=== PATIENT | female | born 1980 | race African-American/Black ===

== ENCOUNTER 2020-11-05 08:11 | Emergency (ER) | payer OTHER, SELFPAY ==
[2020-11-05 08:29] VITALS: BP 120/74; PULSE 88; RESP 16; TEMP 36.4; O2SAT 100
--- NOTE | 2020-11-05 08:42 | ED.DENTAL ---
HPI - Dental/Oral General Chief complaint: Dental/Oral Stated complaint: Tooth Pain Time Seen by Provider: 11/05/20 08:30 Source: patient and RN notes reviewed Mode of arrival: ambulatory Limitations: no limitations History of Present Illness HPI Narrative: Patient presents today complaining of a possible dental abscess that she noted to the right upper tooth this morning with pain that she currently rates 8/10. Denies fever, shortness of breath, swallowing. Reports that she feels that her face is swollen, but does not see that it is swollen. She does have a dentist and states that this affected tooth has been infected before and needs to be pulled. She has taken Tylenol prior to arrival without relief. MD Complaint: tooth pain Related Data Home Medications Medication Instructions Recorded Confirmed atorvastatin 1 mg PO DAILY 11/05/20 11/05/20 blood sugar diagnostic [OneTouch 11/05/20 11/05/20 Verio test strips] insulin glargine [Lantus Solostar 20 unit SUBCUT HS 11/05/20 11/05/20 U-100 Insulin] lisinopril 1 mg PO DAILY 11/05/20 11/05/20 metformin 1 mg PO DAILY 11/05/20 11/05/20 pen needle, diabetic [BD 11/05/20 11/05/20 Ultra-Fine Short Pen Needle] Allergies Allergy/AdvReac Type Severity Reaction Status Date / Time codeine Allergy Severe FACIAL Verified 11/05/20 08:24 SWELLING Review of Systems Review of Systems: Narrative: CONSTITUTIONAL: Denies body aches, fever, chills, or sweats. EYES: Denies visual changes, redness, or discharge. ENT: Denies rhinorrhea, congestion, sore throat, or otalgia.+ Tooth pain CARDIOVASCULAR: Denies chest pain, palpitations, or edema. RESPIRATORY: Denies cough or dyspnea. GASTROINTESTINAL: Denies abdominal pain, nausea, vomiting, or diarrhea. GENITOURINARY: Denies dysuria or hematuria. SKIN: Denies rash, itching, or wounds. MUSCULOSKELETAL: Denies back pain, joint pain, or myalgia. NEUROLOGIC: Denies headache, numbness, tingling, or weakness. PSYCH: Denies depression or anxiety. [facility] Past Medical History Medical History (Updated 11/05/20 @ 08:45 by Shasha Santos, INSURANCE UNDERWRITING ASSISTANT, BC) Diabetes Social History Social History Gender identity (if verbalized by the patient): Female Comments At time of signature, I have reviewed and agree with nursing past medical, surgical, social and family history unless otherwise noted. Please see nursing chart for further information. There is no relevant family history pertinent to the presenting complaint Exam Narrative: Exam Narrative: GENERAL: Well-appearing, well-nourished, and in no acute distress. HEAD: Normocephalic, atraumatic. EYES: EOMI. No redness or drainage. Conjunctivae normal. ENT: Mucous membranes pink and moist. Throat normal. Uvula midline. Dental decay throughout. Periapical abscess adjacent to tooth #2 with surrounding erythema and mild edema of the gumline of the inner surface of the gumline. No facial swelling noted. NECK: Normal AROM. Supple. No lymphadenopathy. CHEST: No respiratory distress. Clear to auscultation. HEART: Regular rate and rhythm. No murmur appreciated. Normal peripheral pulses. EXTREMITIES: Normal range of motion. No edema. SKIN: Warm, dry, no rash. Capillary refill normal. Normal skin turgor. NEURO: No focal deficits. Alert and oriented x3. Gait steady. PSYCH: Normal affect. No signs of depression or anxiety. Course Vital Signs Vital signs: Vital Signs Temperature 97.5 F L 11/05/20 08:29 Pulse Rate 88 11/05/20 08:29 Respiratory Rate 16 11/05/20 08:29 Blood Pressure 120/74 11/05/20 08:29 Pulse Oximetry 100 11/05/20 08:29 Temperature 97.5 F L 11/05/20 08:29 Pulse Rate 88 11/05/20 08:29 Respiratory Rate 16 11/05/20 08:29 Blood Pressure 120/74 11/05/20 08:29 Pulse Oximetry 100 11/05/20 08:29 Reviewed MDM - Dental/Oral Differential Diagnosis Differential diagnosis: Likely gingival abscess, dental caries, toothache, dental abscess an
== END 2020-11-05 08:50 | disposition home or self-care (01) ==
PROVIDERS: Emergency Provider Nurse Practitioner
DX: K04.7 Periapical abscess without sinus (principal); E11.9 Type 2 diabetes mellitus without complications
CPT/HCPCS: 99213; G0463

== ENCOUNTER 2021-01-17 21:35 | Inpatient (IN) | payer OTHER, SELFPAY ==
[2021-01-17] VITALS (14 sets, daily range): BP systolic 122–148; BP diastolic 74–92; PULSE 62–83; RESP 11–19; TEMP 36.8; O2SAT 99–100
--- NOTE | ~2021-01-17 | CT_ITS ---
EXAMINATION: CT brain w con DATE: 01/17/2021 23:46 INDICATION: Frontal headache TECHNIQUE: Computed tomography (CT) of the head was performed with 100 cc Omnipaque 350 intravenous c ontrast. The mA was adjusted according to patient size. Iterative reconstruction technique was employ ed. Exam dose: 605.33 mGy-cm total exam DLP. COMPARISON: 01/17/[address] brain FINDINGS: There is asymmetric prominence and intraluminal filling defect of the right transverse sinu s, with minimal surrounding contrast material, suggesting nonocclusive thrombus within the sinus. No intracranial mass lesion or hemorrhage or cerebrovascular accident, midline shift or mass effect e ffect or subdural or epidural hematoma is evident. IMPRESSION: Nonocclusive thrombus within the right transverse sinus Reviewed, dictated and finalized at [facility]. Reviewed, dictated and finalized at [facility].
--- NOTE | ~2021-01-17 | CT_ITS ---
EXAMINATION: CT brain wo con DATE: 01/17/2021 22:15 INDICATION: Headache TECHNIQUE: Computed tomography (CT) of the head was performed without intravenous contrast. The mA wa s adjusted according to patient size. Iterative reconstruction technique was employed. Exam dose: 60 5.33 mGy-cm total exam DLP. COMPARISON: None FINDINGS: Asymmetric prominent hyperdense right transverse sinus raises concern for possible venous t hrombosis within this structure. Differential diagnosis includes subdural hematoma. Otherwise no intracranial mass lesion or hemorrhage, cerebrovascular accident or midline shift or mas s effect. No subdural or epidural hematoma is noted otherwise. Included mastoid air cells and paranasal sinuses are normally developed and aerated. No fracture or bone destruction of the cranial vault. IMPRESSION: Asymmetric prominence and hyperdensity in the region of the right transverse sinus sugge sting possible thrombosis; differential diagnosis includes subdural hematoma Reviewed, dictated and finalized at [facility]. Reviewed, dictated and finalized at [facility]. IMPRESSION: Asymmetric prominence and hyperdensity in the region of the right transverse sinus suggesting possible thrombosis; differential diagnosis include s subdural hematoma
--- NOTE | 2021-01-17 21:57 | ED.GENADULT ---
HPI - General Adult General Chief complaint: Recheck/Abnormal Lab/Rx <Teofilo Shen DO - Last Filed: 01/18/21 23:01> Stated complaint: elevated bp <Teofilo Shen DO - Last Filed: 01/18/21 23:01> Time Seen by Provider: 01/17/21 21:48 <Teofilo Shen DO - Last Filed: 01/18/21 23:01> Source: RN notes reviewed <Teofilo Shen DO - Last Filed: 01/18/21 23:01> History of Present Illness HPI narrative: Patient presents to emergency department from home for high blood pressure. Patient states that she has been having intermittent headache for the past 3 days over the frontal head. She states that she has noted with this her blood pressure is elevated today with a blood pressure of 162/100. She states that she had seen her PCP earlier today and was noted have a blood pressure approximately 152/100 at that time she states her blood sugars have been running normal she denies any vision changes, numbness or tingling in the extremities chest pain, shortness of breath abdominal pain nausea vomiting or any other symptoms. She states she took Tylenol earlier this evening approximately 8:00 she had states she did take her lisinopril at her normal time of noon today <Teofilo Shen DO - Last Filed: 01/18/21 23:01> Related Data Home medications: Home Medications Medication Instructions Recorded Confirmed atorvastatin 10 mg PO DAILY 11/05/20 01/18/21 blood sugar diagnostic [OneTouch 11/05/20 11/05/20 Verio test strips] insulin glargine [Lantus Solostar 20 unit SUBCUT HS 11/05/20 01/18/21 U-100 Insulin] metformin 500 mg PO DAILY 11/05/20 01/18/21 pen needle, diabetic [BD 11/05/20 11/05/20 Ultra-Fine Short Pen Needle] lisinopril 10 mg PO DAILY 01/18/21 01/18/21 <DO Chetna Castro Last Filed: 01/18/21 23:01> Allergies/adverse reactions: Allergies Allergy/AdvReac Type Severity Reaction Status Date / Time codeine Allergy Severe FACIAL Verified 11/05/20 08:24 SWELLING <Teofilo Shen DO - Last Filed: 01/18/21 23:01> Review of Systems Review of Systems: Narrative: Gen.: Denies fevers or chills Eyes: Denies eye pain or visual change ENT: Denies congestion Respiratory: Denies shortness of breath or cough CV: Denies chest pain or palpitations GI: Denies abdominal pain nausea, emesis or diarrhea Musculoskeletal: Denies back pain or muscle pain Neuro: Denies numbness, tingling, weakness or focal weakness, reports headache Skin: Denies rash Except as documented, all other systems reviewed and negative <Teofilo Shen DO - Last Filed: 01/18/21 23:01> [facility] Past Medical History Medical History: Medical History (Updated 01/18/21 @ 02:21 by Teofilo Shen DO) Diabetes Hypertension <Teofilo Shen DO - Last Filed: 01/18/21 23:01> Social History Social History: Social History (Updated 01/17/21 @ 21:59 by Teofilo Shen DO) Smoking status: Never smoker Gender identity (if verbalized by the patient): Female <Teofilo Shen DO - Last Filed: 01/18/21 23:01> Exam Narrative: Exam Narrative: APPEARANCE: No acute distress, nontoxic, resting in bed HEENT: Normocephalic, atraumatic, OMM, EYES: PERRL, EOMI NECK: Supple, nontender, full range of motion without pain, no meningismus RESPIRATORY: No respiratory distress, clear to auscultation bilaterally with no rhonchi wheezing or rales CARDIOVASCULAR: RRR s murmur ABDOMINAL: Soft, nontender, nondistended MUSCULOSKELETAL: Moves all extremities. No clubbing, cyanosis or edema. NEURO: A and O ?3, following commands, speech normal, no facial droop,muscle strength 5 out of 5 bilateral upper and lower extremities SKIN:: Warm, dry. Normal Color PSYCHIATRIC: Normal affect/mood <Teofilo Shen DO - Last Filed: 01/18/21 23:01> Course Course Emergency Course: Discussed with patient venous thrombosis denies any history of blood clots denies any tobacco use or contro
--- NOTE | 2021-01-17 22:06 | PC.NURSE ---
Patient taken to CT.
[2021-01-17] MEDS: diphenhydrAMINE HCl INJ 50 MG/ML VIAL 25 MG IV PUSH (22:28)
[2021-01-17] MEDS: SODIUM CHLORIDE 0.9% IV 1,000 ML 999 ML IV CONT (22:28)
[2021-01-17] MEDS: KETOROLAC 30 MG/ML VIAL (*BKC) IV PUSH (22:28)
[2021-01-17 22:58] LABS: Basophils Percent Auto 0.3 % (0.2-1.2); Eosinophils Absolute Auto 0.2 K/mm3 (0-0.3); Eosinophils Percent Auto 2.5 % (0-4.4); Hematocrit 33.6 % (37.0-47.0); Immature Granulocyte Absolute 0.02 K/mm3 (0.00-0.031); Immature Granulocyte Percent A 0.3 % (0-0.5); Lymphocytes Absolute Auto 2.87 K/mm3 (0.9-3.2); Lymphocytes Percent Auto 44.3 % (18.3-44.2); Mean Corpuscular HGB Conc 32.7 g/dl (32-36); Mean Corpuscular Hemoglobin 27.9 pg (26-34); Mean Corpuscular Volume 85.3 fl (80-100); Mean Platelet Volume 10.7 fl (7.4-10.4); Monocytes Absolute Auto 0.9 K/mm3 (0.1-0.6); Monocytes Percent Auto 13.7 % (2.6-8.5); Neutrophils Absolute Auto 2.5 K/mm3 (1.3-6.7); Neutrophils Percent Auto 38.9 % (45.5-73.1); Platelet Count Result 226 k/mm3 (150-375); Red Blood Count 3.94 M/mm3 (4.2-5.4); Red Cell Distribution Width 13.1 % (11.5-14.5); White Blood Count 6.5 K/mm3 (4.5-10.0)
[2021-01-17 23:02] LABS: Add Urine Microscopic? YES; Appearance Urine Clear (Clear); Bilirubin Urine Negative (Negative); Blood Urine Negative (Negative); Color Urine Yellow (Yellow); Glucose Urine UA Negative (Negative); Ketones Urine Negative (Negative); Leukocyte Esterase Ur Negative LEU/UL (Negative); Mucus Urine Moderate /lpf; Nitrate Urine Negative (Negative); Protein Urine 2+ mg/dL (Negative); RBC Urine 0-2 /hpf (0-2); Specific Grav Ur 1.029 (1.001-1.035); Squamous Epithelial Cell Urine Few /hpf (Few); WBC Urine 0-3 /hpf
[2021-01-17 23:03] LABS: Alanine Aminotransferase 38 U/L (4-35); Albumin Level 3.4 g/dL (3.5-5.1); Alkaline Phosphatase 69 U/L (38-126); Anion Gap 3 mmol/L (8-16); Aspartate Amino Transferase 29 U/L (14-36); Bilirubin,Total 0.1 mg/dL (0.2-1.3); Blood Urea Nitrogen 12 mg/dL (7-17); Calcium 8.9 mg/dL (8.4-10.2); Carbon Dioxide 31 mmol/L (22-30); Chloride 104 mmol/L (98-107); Estimated CRCL calculation 94 ml/min; Estimated Glomerular Filt Rate > 60; Glucose 123 mg/dL (65-105); Potassium 3.5 mmol/L (3.4-5.0); Sodium 138 mmol/L (137-145)
[2021-01-18] VITALS (97 sets, daily range): BP systolic 109–158; BP diastolic 64–97; PULSE 58–104; RESP 0–24; TEMP 36.3–37.1; O2SAT 97–100
--- NOTE | 2021-01-18 00:15 | PC.NURSE ---
Contacted lab to add on coags.
[2021-01-18 00:44] LABS: Prothrombin Time 13.5 Seconds (11.1-14.7)
[2021-01-18 00:45] LABS: Partial Thromboplastin Time 25.8 SECONDS (22.3-36.8)
[2021-01-18] MEDS: HEPARIN SODIUM 5,000 UNITS/ML VIAL 8000 UNITS IV PUSH (02:21)
[2021-01-18] MEDS: HEPARIN SOD/D5W 100 UNITS/ML 25,000 UNITS/250 ML BAG 15 UNITS IV CONT (02:47)
--- NOTE | 2021-01-18 03:41 | PC.NURSE ---
[id number] Shellie from [facility] access line calls to get triage info on patient. She states she will call back when bed is available.
--- NOTE | 2021-01-18 07:15 | PC.NURSE ---
Pt asleep easily arousable, non-labored respirations, receiving heparin drip. Normotensive. Awaiting bed placement from [facility]
--- NOTE | 2021-01-18 07:45 | PC.NURSE ---
Pt ambulated steady gait to BR, denies CP/SOB, non-labored respirations
--- NOTE | 2021-01-18 08:40 | PC.NURSE ---
Repeat PT/PTT drawn and sent to lab
[2021-01-18 09:11] LABS: Prothrombin Time 14.2 Seconds (11.1-14.7)
[2021-01-18 09:33] LABS: Partial Thromboplastin Time > 200.0 SECONDS (22.3-36.8)
--- NOTE | 2021-01-18 11:55 | PC.NURSE ---
Off going RN reports heparin shut off at 0930 for one hour then decreased by 2ml/hr at 1030 per protocol. Repeat labs ordered for six hours after initial adjustment and are due at 1530. ED Charge aware.
--- NOTE | 2021-01-18 12:00 | PC.NURSE ---
Patient provided with toiletries and was up to the bathroom at this time. Provided with clean linen on bed. Meal tray ordered and patient aware of upcoming blood glucose check.
--- NOTE | 2021-01-18 12:14 | PC.NURSE ---
called [facility] for bed update, still waiting bed assignment [id number]
[2021-01-18 12:16] LABS: Glucose Point of Care 72 (65-105)
--- NOTE | 2021-01-18 12:18 | PC.NURSE ---
Addendum entered by Dimirti Richardson RN 01/18/21 13:16: EDP was made aware of this at time of note. Original Note: Patient reports that she takes metformin 500mg PO at lunchtime. Patient glucose noted to be 72. Metformin withheld at this time.
--- NOTE | 2021-01-18 15:45 | PC.NURSE ---
[facility] access line contacted. [facility] does not have bed assignment yet and prob wont today.
--- NOTE | 2021-01-18 15:50 | PC.NURSE ---
called [facility] for bed update 1550, no beds available, waiting discharges.
--- NOTE | 2021-01-18 16:24 | PC.NURSE ---
Meals ordered for dinner today as well as breakfast and lunch for tomorrow.
[2021-01-18 16:48] LABS: INR 1.2; Prothrombin Time 15.4 Seconds (11.1-14.7)
[2021-01-18 16:51] LABS: Partial Thromboplastin Time 124.8 SECONDS (22.3-36.8)
--- NOTE | 2021-01-18 17:20 | PC.NURSE ---
next 6 hour PT/PTT ordered for 2200.
--- NOTE | 2021-01-18 20:31 | PC.NURSE ---
Called [facility] requesting a placement update. They still have no available bed at this time
--- NOTE | 2021-01-18 20:34 | PC.NURSE ---
[place] [facility] US called [facility], told will be a wait for a room because pt. was not covid swabbed. Our ED MD not made aware of this last night.
[2021-01-18 22:15] LABS: Partial Thromboplastin Time 112.3 SECONDS (22.3-36.8)
[2021-01-18 22:21] LABS: INR 1.1
[2021-01-18] MEDS: HEPARIN SOD/D5W 100 UNITS/ML 25,000 UNITS/250 ML BAG 9 UNITS IV CONT (22:43)
--- NOTE | 2021-01-18 23:01 | PC.NURSE ---
heparin infusion rate decreased per protocol. Timed lab redraws ordered for 0500 per protocol. pt resting in bed c eyes open. c/o headache 05/29. MD notified. No s/s of distress. speech clear. a/o x 4 with ability to move all 4 extremities without difficulty.
[2021-01-18] MEDS: ACETAMINOPHEN 500 MG TABLET 1000 MG PO (23:15)
[2021-01-19] VITALS (26 sets, daily range): BP systolic 109–158; BP diastolic 66–103; PULSE 55–104; RESP 12–19; TEMP 36.3; O2SAT 98–100; BMI 32.5
[2021-01-19 03:37] LABS: Glucose Point of Care 100 (65-105)
[2021-01-19 05:05] LABS: INR 1.1; Prothrombin Time 14.7 Seconds (11.1-14.7)
[2021-01-19 05:07] LABS: Partial Thromboplastin Time 86.1 SECONDS (22.3-36.8)
[2021-01-19] MEDS: HEPARIN SOD/D5W 100 UNITS/ML 25,000 UNITS/250 ML BAG 9 UNITS IV CONT ×2 (05:31→23:16)
[2021-01-19 06:53] LABS: Basophils Percent Auto 0.7 % (0.2-1.2); Eosinophils Absolute Auto 0.2 K/mm3 (0-0.3); Hematocrit 35.7 % (37.0-47.0); Hemoglobin 11.4 g/dL (12.0-15.0); Immature Granulocyte Absolute 0.01 K/mm3 (0.00-0.031); Immature Granulocyte Percent A 0.2 % (0-0.5); Lymphocytes Absolute Auto 2.54 K/mm3 (0.9-3.2); Lymphocytes Percent Auto 44.3 % (18.3-44.2); Mean Corpuscular HGB Conc 31.9 g/dl (32-36); Mean Corpuscular Hemoglobin 27.9 pg (26-34); Mean Corpuscular Volume 87.3 fl (80-100); Mean Platelet Volume 10.3 fl (7.4-10.4); Monocytes Absolute Auto 0.9 K/mm3 (0.1-0.6); Neutrophils Absolute Auto 2.1 K/mm3 (1.3-6.7); Neutrophils Percent Auto 36.8 % (45.5-73.1); Platelet Count Result 237 k/mm3 (150-375); Red Blood Count 4.09 M/mm3 (4.2-5.4); Red Cell Distribution Width 13.3 % (11.5-14.5); White Blood Count 5.7 K/mm3 (4.5-10.0)
[2021-01-19 07:03] LABS: Anion Gap 1 mmol/L (8-16); Blood Urea Nitrogen 10 mg/dL (7-17); Calcium 8.9 mg/dL (8.4-10.2); Carbon Dioxide 32 mmol/L (22-30); Chloride 106 mmol/L (98-107); Estimated CRCL calculation 85 ml/min; Estimated Glomerular Filt Rate > 60; Glucose 96 mg/dL (65-105); Potassium 4.2 mmol/L (3.4-5.0); Sodium 139 mmol/L (137-145)
[2021-01-19] MEDS: ACETAMINOPHEN 500 MG TABLET 1000 MG PO (07:43)
[2021-01-19 11:14] LABS: Prothrombin Time 13.8 Seconds (11.1-14.7)
[2021-01-19 11:16] LABS: Partial Thromboplastin Time 66.3 SECONDS (22.3-36.8)
[2021-01-19] MEDS: HEPARIN SODIUM 5,000 UNITS/ML VIAL 3500 UNITS IV PUSH (11:29)
--- NOTE | 2021-01-19 13:40 | PC.NURSE ---
Cecilia from [facility] health line called to update pt bed status. Cecilia states that right now no beds are available. At the earliest it would be this evening for a bed to become available. Informed charge nurse Amanda of this
--- NOTE | 2021-01-19 16:54 | PC.NURSE ---
No dose change needed for pt
[2021-01-19 17:09] LABS: INR 1.1; Prothrombin Time 14.5 Seconds (11.1-14.7)
[2021-01-19 17:10] LABS: Partial Thromboplastin Time 91.8 SECONDS (22.3-36.8)
--- NOTE | 2021-01-19 17:59 | PC.NURSE ---
This patient, Letty Sheets, was admitted to Medical Room 348-01. Patient/family oriented to hospital policies and general routines including ID bracelet, bed and alarms, visiting hours, pain management, procedures, bathroom and other care routines, personal items, smoking policy, room service/diet, and visiting hours. Information on how to activate the Rapid Response Team has been discussed. Patient/Family are encouraged to report perceived risks to care and to ask questions if they do not understand what they are told or what they should do.
--- NOTE | 2021-01-19 18:11 | PC.NURSE ---
Pt received from ED. When pt arrived to room heparin was running at 9mls/hr when in the mar and what was told to me in report, pt was to be running at 11mls/hr. Chaz Lane, charge aide, notified of this difference. PTT is therapeutic and mar was changed to what pt was running at. Sindy Gil 2nd RN verified these differences and the change to the mar. Notifying hospitalist of this as well.
--- NOTE | 2021-01-19 18:14 | PC.NURSE ---
Upon taking pt up to room admitting RN noticed that pts pump was running at 9 units of Heparin instead of 11 like it had been adjusted to earlier today. This RN asked Dr. Weller and he states to ask admitting if it should be raised to 11 or kept at 9. Will inform charge nurse Amanda of this.
--- NOTE | 2021-01-19 18:27 | PHAR ---
01/19/21 1825 VERIFIED HEPARIN RATE AT 900 UNITS/HR. NOT A RATE CHANGE BUT AN ENTRY REFLECTIVE OF THE CURRENT RATE. PATIENT IS THERAPEUTIC AT THIS RATE.
[2021-01-19] MEDS: ACETAMINOPHEN 325 MG TABLET 650 MG PO (18:46)
--- NOTE | 2021-01-19 19:00 | PM.TDS ---
Transfer Discharge Sum: Prov Provider Date of admission: 01/19/21 19:00 Primary care physician: UNKNOWN,DOCTOR Admitting clinician: Leland Arriaga MD DS: Admitting Diagnosis Admitting Diagnosis Admitting Diagnosis: 1. Thrombosis of the transverse sinus. 2. Insulin-dependent type 2 diabetes mellitus. 3. Hypertension. 4. Hyperlipidemia. 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) use of insulin Status: Acute (3) Hypertension: Code(s): I10 - Essential (primary) hypertension Status: Acute (4) Hyperlipidemia: Code(s): E78.5 - Hyperlipidemia, unspecified Status: Acute Transfer Discharge Sum: Med Medications Active and Home Medications: Home Medications atorvastatin 10 mg PO DAILY 11/05/20 [History Confirmed 01/18/21] blood sugar diagnostic [Team K[employer] Mixed Martial artsTouch Verio test strips] 11/05/20 [History Confirmed 01/19/21] insulin glargine [Lantus Solostar U-100 Insulin] 20 unit SUBCUT HS 11/05/20 [History Confirmed 01/18/21] metformin 500 mg PO DAILY 11/05/20 [History Confirmed 01/18/21] pen needle, diabetic [BD Ultra-Fine Short Pen Needle] 11/05/20 [History Confirmed 01/19/21] lisinopril 10 mg PO DAILY 01/18/21 [History Confirmed 01/18/21] Transfer Discharge Sum: Hosp Hospital Course Hospital course: This is a 40-year-old female with insulin-dependent type 2 diabetes mellitus, hypertension, and hyperlipidemia who presented to the emergency department in the evening of 01/17/2021 with reports of a headache and elevated blood pressure. Several days prior to presentation she developed a right frontal headache that has been persistent since the onset. After an appointment with her primary care provider she was started on lisinopril 10 milligrams daily and she assumed her headaches were secondary to elevated blood pressures. Unfortunately her headaches continued despite the addition of lisinopril and she was only having mild relief with acetaminophen and thus she came in for evaluation. A noncontrast brain CT demonstrated a nonocclusive thrombus within the right transverse sinus and transfer was initiated to [place] for evaluation by Neurology. There was mention that this could possibly have been a subdural hematoma but that is felt to be less likely. She was started on a heparin drip and she has remained in a hospital bed in the ER for well over 36 hours awaiting transfer. She did well with the heparin drip and there was no change in neurologic status to suggest an intracranial bleed. Due to the fact that she was in the emergency department for greater than 24 hours awaiting transfer I was asked to admit the patient to the floor so she may be monitored more closely. At the time my evaluation the patient continued to have a mild ache in the right frontal region and she also complained of being tired, getting little rest while in the emergency department. Aside from the headache she had no real complaints. She was afebrile throughout her stay with stable vital signs. Blood pressures did occasionally get up to the 140s to 150s systolic but were well controlled most of the time. CBC showed a mild normocytic anemia with normal white blood cell count. Initial coags were within normal limits. She was started on a heparin drip for the thrombus and her PTT was monitored closely. BMP and LFTs were essentially unremarkable. 2+ protein was noted in the urine. A bed became available within several hours of the patient being admitted to the [facility] in stable condition. Time Spent with Patient Time attestation: Total time spent providing and/or coordinating transfer services: 50 minutes. Total time spent: Greater than 30 minutes [place]
[2021-01-19 19:15] LABS: SARS-CoV-2 RNA PCR Negative
--- NOTE | 2021-01-19 19:16 | PC.NURSE ---
Hanh HOWARD notified of heparin being at 9mls/hr when it should have been at 11mls/hr when brought from the ER.
--- NOTE | 2021-01-19 19:16 | PM.SD2 ---
Same Day Admit/Disch: HPI History of Present Illness Chief complaint: Headache, elevated blood pressure. Narrative: This is a 40-year-old female with insulin-dependent type 2 diabetes mellitus, hypertension, and hyperlipidemia who presented to the emergency department in the evening of 01/17/2021 with reports of a headache and elevated blood pressure. Several days prior to presentation she developed a right frontal headache that has been persistent since the onset. After an appointment with her primary care provider she was started on lisinopril 10 milligrams daily and she assumed her headaches were secondary to elevated blood pressures. Unfortunately her headaches continued despite the addition of lisinopril and she was only having mild relief with acetaminophen and thus she came in for evaluation. A noncontrast brain CT demonstrated a nonocclusive thrombus within the right transverse sinus and transfer was initiated to [place] for evaluation by Neurology. She was started on a heparin drip and she has remained in a hospital bed in the ER for well over 36 hours awaiting transfer. I was asked in this setting to admit the patient to the floor until a bed opens up. At the time my evaluation the patient continues to have a mild ache in the right frontal region and she also complains of being tired, getting little rest while in the emergency department. Aside from the headache she has no real complaints but does mention multiple issues with her teeth and in fact it sounds like she is to have a full mouth extraction in the near future. She does not currently have any active abscesses to her knowledge and has no significant mouth pain. She is not on oral contraceptives and has not received the COVID vaccination. No personal or family history of venous thromboembolism. No vertigo, syncope, near syncope, auditory or visual changes, focal weakness, or paresthesias. [facility] Past Medical History Medical History (Updated 01/19/21 @ 19:22 by Hanh Wood PA-C) Hyperlipidemia Hypertension Insulin dependent type 2 diabetes mellitus Surgical History Surgical History (Updated 01/19/21 @ 19:19 by Hanh Wood PA-C) History of tubal ligation Family History Family History Mother Diabetes mellitus Sibling Diabetes mellitus Father Lung cancer Social History Social History (Updated 01/19/21 @ 20:44 by Hanh G. Gerling, PA-C) Social History: Surrogate decision maker: Steve Sheets, . Code status: Full code. Smoking status: Never smoker Alcohol intake: former Substance use: never Additional living arrangements comments: Resides in [place] with her and 2 of their children. 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 Same Day Admit/Disch: Med Pre-admit Medications Home Medications Medication Instructions Recorded Confirmed Type atorvastatin 10 mg PO DAILY 11/05/20 01/18/21 History blood sugar diagnostic [OneTouch 11/05/20 01/19/21 History Verio test strips] insulin glargine [Lantus Solostar 20 unit SUBCUT HS 11/05/20 01/18/21 History U-100 Insulin] metformin 500 mg PO DAILY 11/05/20 01/18/21 History pen needle, diabetic [BD 11/05/20 01/19/21 History Ultra-Fine Short Pen Needle] lisinopril 10 mg PO DAILY 01/18/21 01/18/21 History Exam Narrative: Exam Narrative: General: Well-developed female in the semi-Gomes position in bed in no distress. Weight: 103.1 kilograms. BMI: 32.6. HEENT: Normocephalic, atraumatic. PERRL, EOMI. Sclerae anicteric. Nares are patent bilaterally. She is somewhat tender to palpation in the right supraorbital region. No tenderness over the maxillary sinuses. She has multiple missing teeth and cracked teeth with dental caries. Oral mucosa moist. Oropharynx clear. Neck: Supple. No lymphadenopathy. Respiratory: Lungs are clear to a
[2021-01-19 23:05] LABS: Partial Thromboplastin Time 71.7 SECONDS (22.3-36.8)
[2021-01-20] VITALS: PULSE 69
== END 2021-01-20 02:15 | disposition short-term general hospital (02) | DRG 58 ==
LOC: ANHED 01-19 16:45 → ANH3MED 01-19 16:50
PROVIDERS: Emergency Medicine; Admitting Provider Internal Medicine; Emergency Provider Emergency Medicine; Visit Provider Internal Medicine
DX: G08 Intracranial and intraspinal phlebitis and thrombophlebitis (principal); Z20.822 Contact with and (suspected) exposure to COVID-19; E11.9 Type 2 diabetes mellitus without complications; I10 Essential (primary) hypertension; E78.5 Hyperlipidemia, unspecified; Z79.4 Long term (current) use of insulin
CPT/HCPCS: 36415; 70450; 70460; 80048; 80053; 81001; 81025; 82948; 85025; 85610; 85730; 99285; A9270; C9803; G0379; J1200; J1644; J1885; J7030; Q9967; U0003; U0005

== ENCOUNTER 2022-09-17 09:14 | Outpatient (CLI) | payer OTHER, SELFPAY ==
--- NOTE | ~2022-09-17 | MM_ITS ---
EXAMINATION: MM screening brenda BI w kiah HISTORY: Screening mammogram TECHNIQUE: Craniocaudal and mediolateral oblique 3-D tomosynthesis images were obtained and synthetic 2-D images were generated. CAD analysis was submitted and interpreted. COMPARISON: No prior mammogram is available for comparison at this institution. BREAST PARENCHYMAL COMPOSITION: The breasts are almost entirely fatty. FINDINGS: There is no evidence of suspicious mass, calcification, or architectural distortion to sugg est malignancy in either breast. There has been no suspicious interval change. IMPRESSION: 1. No mammographic evidence of malignancy. 2. Recommend routine screening mammography in one year. BI-RADS Category 1: Negative Reviewed, dictated and finalized at [facility]. [facility] SERVICEMAN
== END 2022-09-17 09:15 | disposition home or self-care (01) ==
LOC: ANHIMG 09:16
PROVIDERS: Visit Provider Nurse Practitioner Obstetrics & Gynecology
DX: Z12.31 Encounter for screening mammogram for malignant neoplasm of breast (principal)
CPT/HCPCS: 77063; 77067

== ENCOUNTER 2023-01-09 06:11 | Emergency (ER) | payer OTHER, SELFPAY ==
[2023-01-09] VITALS (21 sets, daily range): BP systolic 132–159; BP diastolic 68–96; PULSE 72–95; RESP 13–95; TEMP 36.8; O2SAT 93–100
--- NOTE | ~2023-01-09 | CT_ITS ---
EXAMINATION: CT abdomen pelvis w con INDICATION: Lower abdominal pain TECHNIQUE: Computed tomographic images of the abdomen and pelvis were obtained after the administrati on of 100 cc of Omnipaque 350 intravenous contrast. The dose-length product (DLP) was 1084.99 mGy-cm. Automated exposure control and iterative reconstruction technique were employed. COMPARISON: None available FINDINGS: Minimal dependent atelectasis is present in the lung bases. The heart size is normal. There is a small right pleural effusion. The liver, spleen, pancreas, gallbladder, and adrenal glands are normal. The kidneys are unremarkable. There is a moderate volume of free fluid in the pelvis. There i s also a moderate volume of subcutaneous gas in the lower anterior abdominal wall, left greater than right. Inflammatory change in the infraumbilical midline abdominal fat is consistent with recent surg soledad. There is a Orozco catheter in the urinary bladder. There is marked wall thickening of the urinary bladder. A small focus of gas in the urinary bladder is likely due to the Orozco catheter. No patholo gically enlarged abdominal or pelvic lymph nodes are identified. No free intraperitoneal gas or evide nce of bowel obstruction. IMPRESSION: 1. Diffuse wall thickening of the urinary bladder which could reflect cystitis. 2. Small volume of pelvic ascites of unclear etiology. 3. Subcutaneous gas of the anterior abdominal wall and infiltration of the midline lower abdominal fa t, consistent with recent surgery. Reviewed, dictated and finalized at location A. IMPRESSION: 1. Diffuse wall thickening of the urinary bladder which could reflect cystitis. 2. Small volume of pelvic ascites of unclear etiology. 3. Subcutaneous gas of the anterior abdominal wall and infiltration of the midl ine lower abdominal fat, consistent with recent surgery.
[2023-01-09] MEDS: ONDANSETRON INJ 4 MG/2 ML VIAL IV PUSH (06:30)
[2023-01-09 06:32] LABS: Basophils Percent Auto 0.3 % (0.2-1.2); Eosinophils Percent Auto 0.2 % (0-4.4); Hematocrit 32.1 % (37.0-47.0); Hemoglobin 10.6 g/dL (12.0-15.0); Immature Granulocyte Absolute 0.05 K/mm3 (0.00-0.031); Immature Granulocyte Percent A 0.6 % (0-0.5); Lymphocytes Absolute Auto 0.86 K/mm3 (0.9-3.2); Lymphocytes Percent Auto 9.5 % (18.3-44.2); Mean Corpuscular Hemoglobin 27.9 pg (26-34); Mean Corpuscular Volume 84.5 fl (80-100); Monocytes Absolute Auto 0.6 K/mm3 (0.1-0.6); Monocytes Percent Auto 6.7 % (2.6-8.5); Neutrophils Absolute Auto 7.5 K/mm3 (1.3-6.7); Neutrophils Percent Auto 82.7 % (45.5-73.1); Platelet Count Result 482 k/mm3 (150-375); Red Cell Distribution Width 13.7 % (11.5-14.5)
[2023-01-09 06:42] LABS: Alanine Aminotransferase 23 U/L (6-35); Alkaline Phosphatase 105 U/L (38-126); Anion Gap 10 mmol/L (8-16); Aspartate Amino Transferase 28 U/L (14-36); Bilirubin,Total 0.6 mg/dL (0.2-1.3); Blood Urea Nitrogen 9 mg/dL (7-17); Carbon Dioxide 26 mmol/L (22-30); Chloride 95 mmol/L (98-107); Estimated CRCL calculation 115 ml/min; Estimated Glomerular Filt Rate > 60; Glucose 189 mg/dL (65-110); Lipase 150 U/L (23-300); Potassium 3.7 mmol/L (3.4-5.0); Sodium 131 mmol/L (137-145)
[2023-01-09 06:47] LABS: Appearance Urine Turbid (Clear); Bacteria Urine 4+ /hpf; Bilirubin Urine 1+ (Negative); Blood Urine 3+ (Negative); Color Urine Dark Yellow (Yellow); Glucose Urine UA Negative (Negative); Ketones Urine 1+ mg/dL (Negative); Leukocyte Esterase Ur 2+ LEU/UL (Negative); Mucus Urine Present /lpf; Need Manual Microscopic Need Manual; Nitrate Urine Positive (Negative); Protein Urine 3+ mg/dL (Negative); RBC Urine >100 /hpf (0-2); Specific Grav Ur 1.022 (1.001-1.035); Squamous Epithelial Cell Urine Occasional /hpf (Few); WBC Urine >100 /hpf
[2023-01-09 07:01] LABS: Non Pathogenic Casts Not Present; WBC Clumps Urine Present /hpf
[2023-01-09 07:02] LABS: Add Urine Microscopic? YES
[2023-01-09] MEDS: SODIUM CHLORIDE 0.9% IV 1,000 ML 999 ML IV CONT ×2 (07:52→11:06)
[2023-01-09] MEDS: MORPHINE SULFATE (*CRX) 4 MG/ML INJ IV PUSH (07:52)
--- NOTE | 2023-01-09 08:08 | ED.ABDPAIN ---
HPI - Abdominal Pain General Chief Complaint: Abdominal Pain Stated Complaint: ABD PAIN Time Seen by Provider: 01/09/23 07:00 History of Present Illness HPI narrative: Patient is a 42-year-old female who presents ER with lower abdominal pain. Worsening over the last 2 days. Sharp and radiates into her back. Patient underwent hysterectomy on 12/28/2022 at [facility] due to fibroids with menorrhagia. She has an indwelling Orozco catheter in place since then and she is unsure why. She reports subjective fevers and chills. She has follow-up with her surgeons tomorrow. Symptoms are worsened by physical movement. Denies alleviating factors. Related Data Home Medications Medication Instructions Recorded Confirmed atorvastatin 10 mg tablet 10 mg PO DAILY 11/05/20 01/18/21 blood sugar diagnostic (OneTouch 11/05/20 01/19/21 Verio test strips) insulin glargine 100 unit/mL (3 20 unit subcut HS 11/05/20 01/18/21 mL) subcutaneous pen (Lantus Solostar U-100 Insulin) metformin 500 mg tablet 500 mg PO DAILY 11/05/20 01/18/21 pen needle, diabetic 31 gauge x 11/05/20 01/19/21 5/16 (BD Ultra-Fine Short Pen Needle) lisinopril 10 mg tablet 10 mg PO DAILY 01/18/21 01/18/21 Allergies Allergy/AdvReac Type Severity Reaction Status Date / Time codeine Allergy Severe FACIAL Verified 01/09/23 07:13 SWELLING Review of Systems Review of Systems: All systems reviewed & are unremarkable except as noted in HPI and below Constitutional: Constitutional: Reports chills, Reports fatigue and Reports fever(s) ENT: Denies nasal congestion and Denies sore throat Cardiovascular: Cardiovascular: Denies chest pain, Denies radiating jaw, neck or arm pain and Denies slow heart rate Respiratory: Respiratory: Denies cough and Denies dyspnea Gastrointestinal: Gastrointestinal: Reports abdominal pain, Denies diarrhea, Denies nausea and Denies vomiting Genitourinary: Genitourinary: Denies dysuria and Denies flank pain [facility] Past Medical History Medical History (Updated 01/09/23 @ 12:20 by Jeremías Kitchen MD) Hyperlipidemia Hypertension Insulin dependent type 2 diabetes mellitus Surgical History Surgical History (Updated 01/19/21 @ 19:19 by Hanh Wood PA-C) History of tubal ligation Family History Family History Mother Diabetes mellitus Sibling Diabetes mellitus Father Lung cancer Social History Social History (Updated 01/19/21 @ 20:44 by Hanh Wood PA-C) Social History: Surrogate decision maker: Steve Sheets, . Code status: Full code. Smoking status: Never smoker Alcohol intake: former Substance use: never Additional living arrangements comments: Resides in [place] with her and 2 of their children. 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 Exam Narrative: GENERAL: Well-appearing, well-nourished, and in no acute distress. HEAD: Normocephalic, atraumatic. EYES: PERRL and EOMI. ENT: Mucous membranes moist. CHEST: Clear to auscultation. No respiratory distress. HEART: Regular rate and rhythm. Normal peripheral pulses. ABDOMEN: Soft, diffusely tender to palpation but worse in the lower abdomen over the midline abdominal scar where there is induration, nondistended. No evidence of cellulitis/wound dehiscence/wound infection. EXTREMITIES: Normal range of motion. No edema. SKIN: Warm, dry, no rash. NEURO: Alert and oriented x3. PSYCH: Normal mood and affect. Course Course Emergency Course: 1005: I discussed case with Dr. Lawson note has been sent [facility]'. Patient underwent radical hysterectomy and I placed a Orozco for prophylaxis. We would like him backfilled with Orozco with 300 cc of fluid and patient will urinate 30 minutes later. If patient has over 150 mL voided patient to be discharged without Orozco patient is then appropriate to
--- NOTE | 2023-01-09 11:28 | PC.NURSE ---
Orozco Catheter Removed per doctor's request. Pt able to void after removal with no complaints. 200mL of urine collected since catheter removal.
[2023-01-09] MEDS: oxyCODONE/ACETAMINOPHEN (*CRX) 5-325 MG TABLET 1 TABLET PO (12:34)
== END 2023-01-09 13:05 | disposition home or self-care (01) ==
PROVIDERS: Emergency Medicine; Emergency Provider Emergency Medicine
DX: N30.90 Cystitis, unspecified without hematuria (principal); E78.5 Hyperlipidemia, unspecified; I10 Essential (primary) hypertension; E11.9 Type 2 diabetes mellitus without complications
CPT/HCPCS: 36415; 74177; 80053; 81001; 83690; 85025; 87077; 87086; 87088; 87186; 96361; 96365; 96367; 96375; 99284; A9270; J0131; J0696; J2270; J2405; J7030; Q9967

== ENCOUNTER 2024-07-12 09:24 | Outpatient (CLI) | payer OTHER, SELFPAY ==
--- NOTE | ~2024-07-12 | MM_ITS ---
EXAMINATION: MM screening brenda BI w kiah HISTORY: Screening TECHNIQUE: Craniocaudal and mediolateral oblique 3-D tomosynthesis images were obtained and synthetic 2-D images were generated. CAD analysis was submitted and interpreted. COMPARISON: 09/17/2022 BREAST PARENCHYMAL COMPOSITION: Not dense: There are scattered areas of fibroglandular density. FINDINGS: There is no evidence of suspicious mass, calcification, or architectural distortion to sugg est malignancy in either breast. There has been no suspicious interval change. IMPRESSION: 1. No mammographic evidence of malignancy. 2. Recommend routine screening mammography in one year. BI-RADS Category 1: Negative Reviewed, dictated and finalized at location B.
== END 2024-07-12 09:25 | disposition home or self-care (01) ==
LOC: ANHIMG 09:25
PROVIDERS: Visit Provider Nurse Practitioner Obstetrics & Gynecology
DX: Z12.31 Encounter for screening mammogram for malignant neoplasm of breast (principal)
CPT/HCPCS: 77063; 77067

== ENCOUNTER 2024-08-30 13:08 | Outpatient (CLI) | payer OTHER, SELFPAY ==
--- OUTSIDE RECORDS SUMMARY | 2024-08-30 13:16 | XMS_ITS | Data Portability ---
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 She is being treated for abnormal bleeding. She has a normal pelvic ultrasound essentially. She will continue to use her current treatment and follow-up with Alie. We discussed HPV, cervical dysplasia, cervical cancer. We discussed HPV transmission, natural history, and dormancy. We discussed cervical dysplasia screening, diagnosis, treatment. She was given precautions about follow-up. She was warned of the potential cervical cancer as an outcome in this situation. We discussed LEEP procedure. We discussed the procedure in detail. I showed her video. We discussed the risks, benefits, and alternatives. We spent 25 minutes [id number]. We will proceed with the procedure. [email or web address] Not available 09/08/2022 19:24:07 Plan of Treatment Reminders Order Date Submit Date Provider Last Modified By Organization Details Last Modified Time Details Appointments None recorded. Lab test, urine 2021 022 [email or web address] [facility], [address], [place], [address], 10:43:34 test, urine 2022 023 [email or web address] [facility], [address], [place], [address], 12:56:53 Referral None recorded. Procedures None recorded. Surgeries loop electrode excision procedure, surgical (LEEP) (SURG) 2021 023 [email or web address] Chad Wei MD, [address], [place], [address], 16:25:58 Imaging US, pelvis 2021 022 [email or web address] [facility], [address], [place], [address], 20:26:24 US, transvagina l 2021 022 [email or web address] [facility], [address], [place], [address], 20:26:24 Medication Orders Slynd 4 mg (28) tablet 2021 022 [address] [id number] [address], [place], [id number], 10:56:47 Patient TargetsNo targets recorded. Patient InstructionsNo instructions recorded. Reason for Referral None Reported. 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 FINAL DIAGN OSIS: Epith elial Cell Abnor malit y, Squam ous Cell: Atypi jese squam ous cells , canno t exclu de high grade squam ous intra epith elial lesio n (ASC- H). Elect micki paris jaylin d by Ashley Ventura MD on 2021 at 2:51 PM ----- ----- ----- ----- ----- ----- ----- ----- ----- ----- ----- ----- ----- ----- ----- ----- ----- ---- HPV RESUL TS: HPV mRNA E6/E7 : Posit baylee - HPV mRNA Detec cassie HPV GENOT YPE 16 (LILIANA) : Not Detec cassie HPV GENOT YPE 18/45 (LILIANA) : Not Detec cassie NOTE: This high risk HPV mRNA assay detec ts fourt een high- risk HPV types (16, 18, 31, 33, 35, 39, 45, 51, 52, 56, 58, 59, 66, 68) witho ut diffe renti ation . This assay can diffe renti ate HPV 16 from HPV 18/45 , but does not diffe renti ate betwe en HPV 18 and HPV 45. A negat baylee HPV 16, 18/45 genot ype assay resul t does not exclu de the possi bilit y of cytol ogic abnor malit ies or of futur e or under lying MEAGHAN 1, MEAGHAN 3 or cance r. COMME NT: Note: This speci men was revie wed by a Cytot echno logis t and/o r Patho logis t (as indic ated in this repor t) after evalu ation using the Thinp rep Imagi ng Syste m. CLINI JESE INFOR MATIO N: Menst rual Statu s: LMP (if appli cable ): Clini jese Histo ry/Pr eviou s Pap: Type of Neopl tenisha (if appli cable ): Signi fican t Clini jese Findi ngs: Other Histo ry: Hormo yulia (if appli cable ): SUGGE STED FOLLO W-UP: Follo w up as warra nted, based on curre nt guide lines and indiv idual patie nt consi derat ions. Not Available [facility] (Lab) [address], [place], [address], 07/21/2022 15:54:56 07/15/20 22 07/15/2022 TRICH OMONA S VAGIN LINA (RRNA ) trichomonas vaginalis ribosomal RNA (rrna) Negati ve negati ve Not Available [facility] (Lab) [address], [place], [address], 07/21/2022 15:54:56 07/15/20 22 07/15/2022 CT/GC (LILIANA) , THINP REP VIAL chlamydia trachomatis, PCR Negati ve negati ve Not Available [facility] (Lab) [address], [place], [address], 07/21/2022 15:54:57 07/15/20 22 07/15/2022 CT/GC (LILIANA) , THINP REP VIAL neisseria gonorrhoeae, PCR Negati ve negati ve Not Available [facility] (Lab) [address], [place], [address], 07/21/2022 15:54:57 08/27/20 22 08/27/2022 SURGI JESE PATHO LOGY surgical pathology SEE RESULT S BELOW CASE REPOR T: Surgi jese Patho logy Repor t Case: [id number] Autho emiliana diez Provi clarisse: Corey Hallman Colle cted: 08/27 1419 ELECTRIC ORGAN INSPECTOR AND REPAIRER Order ing Locat ion: [place] Patho logy Recei amor: 08/28 0302 Patho logis t: Finn Cavazos MD Speci mens: A) - Cervi x, CXBX 3 o'yovani ck B) - Cervi x, CXBX 6 o'yovani ck C) - Endoc ervix , ECC D) - Cervi x, TMZ FINAL DIAGN OSIS: A. Cervi x, 3:00, biops y: -High -grad e squam ous intra epith elial lesio n (MEAGHAN- 2) with super impos ed infla mmati on, see comme nt. B. Cervi x, 6:00, by: -High -grad e squam ous intra epith elial lesio n (MEAGHAN- 2) with super impos ed infla mmati on, see comme nt. C. Endoc ervix , curet tage: -Frag ments of endoc ervic al epith elium , negat baylee for dyspl tenisha. D. Cervi x, TMC, biops y: -High -grad e squam ous intra epith elial lesio n (MEAGHAN- 2) with super impos ed infla mmati on, see comme nt. Aida garcía by Finn Cavazos MD on 08/31 at 1:06 PM ----- ----- ----- ----- ----- ----- ----- ----- ----- ----- ----- ----- ----- ----- ----- ----- ----- ---- COMME NT: Immun ohist ochem ical leobardo sis with p16, perfo rmed to evalu ate the degre e of dyspl tenisha (bloc ks A1, B1, and D1), shows stron g block like react ivity and suppo rts the above diagn oses. CLINI JESE INFOR MATIO N: Human papil lomav irus DNA test posit baylee, high risk on cervi jese speci men. R87.8 10,R8 7.610 MICRO SCOPI C DESCR IPTIO N: A micro scopi c exami natio n was perfo rmed. This test was devel oped and its perfo rmanc e megan cteri stics deter mined by [facility]. It has not been clear ed or appro amor by the U. S. Food and Drug Admin istra tion. The FDA has deter mined that such clear ance or appro porsha is not neces cisco. This test may be used for clini jese purpo se. It shoul d not be regar ded as inves tigat ional or for resea rch. This labor atory is certi fied under the Clini jese Labor atory Impro vemen t Amend ments of 1987 (CLIA ) as quali fied to perfo rm high compl exity clini jese labor atory testi ng. In cases which have decal cifie d tissu es, the resul ts shoul d be inter prete d with cauti on given the possi bilit y of false negat rehan. The posit baylee contr ols demon strat e appro priat e posit baylee stain ing. The known tissu e negat baylee contr ols are negat baylee. The non-i mmune serum contr ol was non-r eacti ve. GROSS DESCR IPTIO N: A. Cervi x. The speci men is label ed with the patie nt's name, demog raphi cs and Cx Bx 3:00 . Recei amor in forma miladis is a 1.0 x 0.6 x 0.2 cm piece of bowie tissu e. It is trise cted and submi tted in casse tte A1. Gross ed by Blessing Rios on B. Cervi x. The speci men is label ed with the patie nt's name, demog raphi cs and Cx Bx 6:00 . Recei amor in forma miladis is a 1.0 x 0.3 x 0.2 cm aggre gate of bowie tissu e and mucus . The entir e speci men is submi tted in one casse tte. Gross ed by Blessing Rios on C. Endoc ervix . The speci men is label ed with the patie nt's name, demog raphi cs and ecc . Recei amor in forma miladis is a 0.5 x 0.3 x 0.[address] gate of minut e red tissu e. The entir e speci men is submi tted in one casse tte. Gross ed by Blessing Rios on D. Cervi x. The speci men is label ed with the patie nt's name, demog raphi cs and tmz . Recei amor in forma miladis is a 2.0 x 0.7 x 0.3 [address] gate of clott ed blood . The entir e speci men is submi tted in one casse tte. Gross ed by Blessing Rios on Not Available [facility] (Lab) [address], [place], [address], 08/31/2022 14:08:59 08/27/20 22 08/27/2022 pregn blanco test, urine HCG negati ve Not Available [place] [address], [place], [address], 08/27/2022 10:10:46 10/04/19 23 10/04/2022 SURGI JESE PATHO LOGY surgical pathology SEE RESULT S BELOW CASE REPOR T: Surgi jese Patho logy Repor t Case: [id number] Autho emiliana diez Provi clarisse: Liane Wei MD Colle cted: 10/04 1435 Order ing Locat ion: [place] Patho logy Recei amor: 10/05 0421 Patho logis t: Aguila Guzman MD Speci men: Cervi x, LEEP FINAL DIAGN OSIS: Cervi x, loop elect rosur gical excis ion proce dure: -Squa mous cell carci noma invad ing to a depth of 4 mm with a linea r exten t of 12 mm exten ding to ectoc ervic al and endoc ervic al alphonse ns. -Back groun d high- grade squam ous intra epith elial lesio n (MEAGHAN- 3) exten ding to ectoc ervic al alphonse n. Elect micki garcía by Aguila Guzman MD on 2022 at 4:31 PM ----- ----- ----- ----- ----- ----- ----- ----- ----- ----- ----- ----- ----- ----- ----- ----- ----- ---- COMME NT: The ectoc ervic al alphonse n demon strat es multi focal invol vemen t by HSIL/ MEAGHAN-3 . Invas baylee squam ous cell carci noma multi focal ly exten ds to the endoc ervic al alphonse n (bloc ks A6-A8 ). The ectoc ervic al alphonse n shows focal invol vemen t by invas baylee squam ous cell carci noma (bloc k A8). CLINI JESE INFOR MATIO N: n87.9 MICRO SCOPI C DESCR IPTIO N: A micro scopi c exami natio n was perfo rmed. This test was devel oped and its perfo rmanc e megan cteri stics deter mined by [facility]. It has not been clear ed or appro amor by the U. S. Food and Drug Admin istra tion. The FDA has deter mined that such clear ance or appro porsha is not neces cisco. This test may be used for clini jese purpo se. It shoul d not be regar ded as inves tigat ional or for resea rch. This labor atory is certi fied under the Clini jese Labor atory Impro vemen t Amend ments of 1987 (CLIA ) as quali fied to perfo rm high compl exity clini jese labor atory testi ng. In cases which have decal cifie d tissu es, the resul ts shoul d be inter prete d with cauti on given the possi bilit y of false negat rehan. The posit baylee contr ols demon strat e appro priat e posit baylee stain ing. The known tissu e negat baylee contr ols are negat baylee. The non-i mmune serum contr ol was non-r eacti ve. GROSS DESCR IPTIO N: A. Cervi x. The speci men is label ed with the patie nt's name, demog alejandro cs and JOCELINP . Recei amor in forma miladis are 4 unori ented piece s of cervi jese tissu e aggre gatin g 4.2 x 4.0 x 1.3 cm. The presu med alphonse ns are inked black and the speci men is seria lly secti on. The entir e speci men is submi tted in casse ttes A1-A 12. Gross ed by Blessing Rios on Not Available [facility] (Lab) [address], [place], [address], 10/05/2022 17:34:39 10/04/19 23 10/04/2022 pregn blanco test, urine HCG negati ve Not Available [facility] [address], [place], [address], 10/04/2022 12:56:41 07/16/20 22 07/16/2022 US, pelvi s No observ ation record ed. [email or web address] [facility] [address], [place], [address], 07/16/2022 13:41:24 07/16/20 22 07/16/2022 US, trans vagin al No observ ation record ed. [email or web address] [facility] [address], [place], [address], 07/16/2022 13:41:12 07/16/20 22 07/16/2022 US, pelvi s No observ ation record ed. [email or web address], [place], [address], 07/23/2022 10:34:03 10/27/19 23 MAMMO , scree hiral, bilat eral No observ ation record ed. MELO Not Available 2022 01:38:45 07/12/20 24 07/12/2024 MAMMO , scree hiral, bilat eral No observ ation record ed. [facility] [address], [place], [address], 07/16/2024 16:43:02 Result Notes None recorded. Procedures Surgical History Date Name Laterality Status Provider Name and Address Organization Details Recorded Time 10/04/19 23 LEEP completed Chad Wei MD [address], [place], [address], [place] [facility] 10/04/2022 17:15:44 10/04/19 23 LEEP completed Cyn Lemus [facility] 10/04/2022 11:01:01 08/27/20 22 Colposcopy completed Alie Hollingsworth [facility]- [address], [place], [address], [place] [facility] 08/27/2022 10:43:16 07/15/20 22 Date of Last Pap Smear completed Mariaelena Momin [facility] 08/27/2022 10:05:31 Imaging Results Imaging Date Name Status LastModified by Organization Details LastModified Time 07/16/2022 US, pelvis completed [email or web address] [facility] [address], [place], [address], 07/16/2022 13:41:24 07/16/2022 US, transvaginal completed [email or web address] [facility] [address], [place], [address], 07/16/2022 13:41:12 07/16/2022 US, pelvis completed [email or web address], [place], [address], 07/23/2022 10:34:03 10/27/2022 MAMMO, screening, bilateral completed [place] Information not available 10/28/2022 01:38:45 07/12/2024 MAMMO, screening, bilateral completed [facility] [address], [place], [address], 07/16/2024 16:43:02 Procedure Notes None recorded. Medical Equipment None Reported. Allergies Allergen ID Allergen Name Allergen Category Reaction Reaction Severity Criticality Documentation Date Start Date Code Code System Note Provider Name and Address Organization Details Recorded Time 08654 codeine medicatio n facial swelling moderate Not available 07/15/2022 2670 RxNorm Luz [facility] 11:46:25 Medications Name Sig Start Date Stop Date Status Note LastModified by Organization Details LastModified Time cyclobenzap rine 10 mg tablet TAKE 1 TABLET BY MOUTH EVERY NIGHT AT BEDTIME 07/15 completed Not Available Not Available Not Available furosemide 40 mg tablet active Not Available Not Available Not Available metformin 500 mg tablet TAKE 1 TABLET BY MOUTH TWICE DAILY active Not Available Not Available No t Available azelastine 0.05 % eye drops PLACE 1 DROP INTO BOTH EYES TWICE DAILY X 1 WEEK active Not Available Not Available No t Available gabapentin 600 mg tablet TAKE 1 TABLET BY MOUTH TWICE DAILY 07/15 completed Not Available Not Available Not Available atorvastati n 10 mg tablet TAKE 1 TABLET BY MOUTH EVERY DAY active Not Available Not Available No t Available alprazolam 1 mg tablet TAKE 1 TABLET BY MOUTH ONCE NEEDED FOR ANXIETY BEFORE MRI 07/15 completed Not Available Not Available Not Available sulfamethox azole 400 mg-trimetho prim 80 mg tablet TAKE 1 TABLET BY MOUTH TWICE DAILY FOR 5 DAYS 07/15 completed Not Available Not Available Not Available prednisone 20 mg tablet 07/15 completed Not Available Not Available Not Available prednisone 5 mg tablet TAKE 1 TABLET BY MOUTH EVERY DAY FOLLOWING TAPER 07/15 completed Not Available Not Available Not Available Lantus U-100 Insulin 100 unit/mL subcutaneou s solution 07/15 completed Not Available Not Available Not Available sulfamethox azole 800 mg-trimetho prim 160 mg tablet TAKE 1 TABLET BY MOUTH TWICE DAILY FOR 5 DAYS active Not Available Not Available No t Available spironolact one 25 mg tablet TAKE 1 TABLET BY MOUTH ONCE DAILY active Not Available Not Available No t Available meloxicam 7.5 mg tablet TAKE 1 TABLET BY MOUTH TWICE DAILY 07/15 completed Not Available Not Available Not Available OneTouch Ultra Test strips USE TO TEST BLOOD SUGAR ONCE DAILY active Not Available Not Available No t Available prednisone 2.5 mg tablet 07/15 completed Not Available Not Available Not Available pantoprazol e 40 mg tablet,daisy yed release 07/15 completed Not Available Not Available Not Available lisinopril 10 mg tablet TAKE 1 TABLET BY MOUTH ONCE DAILY active Not Available Not Available No t Available gabapentin 300 mg capsule TAKE 1 CAPSULE BY MOUTH TWICE DAILY 07/15 completed Not Available Not Available Not Available ergocalcife rol (vitamin D2) 1,250 mcg (50,000 unit) capsule TAKE 1 CAPSULE BY MOUTH ONCE EVERY 15 DAYS active Not Available Not Available No t Available albuterol sulfate HFA 90 mcg/actuati on aerosol inhaler active Not Available Not Available Not Available ondansetron 4 mg disintegrat ing tablet DISSOLVE 1 TABLET ON THE TONGUE EVERY 8 HOURS 07/15 completed Not Available Not Available Not Available neomycin 3.5 mg/g-polymy damien B 10,000 unit/g-dexa meth 0.1 % eye oint APPLY TO LIDS EVERY NIGHT AT BEDTIME FOR 7 DAYS. active Not Available Not Available No t Available Spironolact one W/Hctz 25 mg-25 mg tablet active Not Available Not Available Not Available Lantus U-100 Insulin 100 unit/mL subcutaneou s cartridge 07/15 completed Not Available Not Available Not Available ferrous sulfate 07/15 completed Not Available Not Available Not Available furosemide 07/15 completed Not Available Not Available Not Available Albuterol Sulfate HFA 07/15 completed Not Available Not Available Not Available FeroSul 325 mg (65 mg iron) tablet TAKE 1 TABLET BY MOUTH EVERY DAY active Not Available Not Available No t Available Lantus Solostar U-100 Insulin 100 unit/mL (3 mL) subcutaneou s pen INJECT 20 UNITS SUBCUTANE OUS EVERY NIGHT AT BEDTIME active Not Available Not Available No t Available butalbital- acetaminoph en-caffeine 50 mg-300 mg-40 mg capsule TAKE 1 CAPSULE BY MOUTH TWICE DAILY NEEDED active Not Available Not Available No t Available Eliquis 5 mg tablet 10/27 /2022 completed Not Available Not Available Not Available Eliquis 2.5 mg tablet active Not Available Not Available No t Available TRUEplus Pen Needle 31 gauge x 5/16 USE ONCE DAILY active Not Available Not Available No t Available TRUEplus Pen Needle 31 gauge x 1/4 USE DAILY active Not Available Not Available No t Available OneTouch Ultra2 Meter USE TO TEST BLOOD SUGAR ONCE DAILY active Not Available Not Available No t Available OneTouch Delica Plus Lancet 33 gauge USE TO TEST BLOOD SUGAR ONCE DAILY active Not Available Not Available No t Available Slynd 4 mg (28) tablet Take 1 tablet every day by oral route with meals for 90 days. 2021 active Lot#: [id number], Exp 3 Not Available Not Available Not Available Vitals Date Recorded Body height Body mass index (BMI) Body weight Systolic blood pressure Diastolic blood pressure Provider Name and Address Organization Details Last Updated DateTime 07/24/2022 176.53 cm 33 kg/m2 075895.4 7 g 104 mm[Hg] 69 mm[Hg] Adelaida Ridley [facility] 2 09:46:21 Date Recorded Body height Body mass index (BMI) Body weight Systolic blood pressure Diastolic blood pressure Provider Name and Address Organization Details Last Updated DateTime 08/27/2022 176.53 cm 33 kg/m2 853703.4 7 g 111 mm[Hg] 74 mm[Hg] Mariaelena Momin [facility] 2 10:05:27 Date Recorded Body height Body mass index (BMI) Body weight Systolic blood pressure Diastolic blood pressure Provider Name and Address Organization Details Last Updated DateTime 09/08/2022 176.53 cm 33.8 kg/m2 547920.4 3 g 131 mm[Hg] 86 mm[Hg] [facility] 2 18:49:15 Date Recorded Body height Body mass index (BMI) Body weight Systolic blood pressure Diastolic blood pressure Provider Name and Address Organization Details Last Updated DateTime 10/04/2022 176.53 cm 32.7 kg/m2 865577.2 8 g 100 mm[Hg] 71 mm[Hg] [facility] 11:00:42 Social History Question Answer Notes LastModified by Organizat ion Details LastModified Time Tobacco Smoking Status Never Smoker Nereyda Caldwell [facility], [facility] 10/04/2022 10:45:35 Do You Have An Advance Directive? No Information n ot available 07/15/2022 What Is Your Level Of Alcohol Consumption? None Information not available 07/15/2022 Are You Blind Or Do You Have Difficulty Seeing? No Information n ot available 07/15/2022 What Is Your Level Of Caffeine Consumption? Occasional Information not available 07/15/2022 How Much Tobacco Do You Chew? None Information not available 07/15/2022 In The 14 Days Before Symptom Onset, Have You Had Close Contact With A Laboratory-confirm ed COVID-19 While That Case Was Ill? No Information n ot available 07/15/2022 In The 14 Days Before Symptom Onset, Have You Had Close Contact With A Person Who Is Under Investigation For COVID-19 While That Person Was Ill? No Information not available 07/15/2022 Have You Been To An Area Known To Be High Risk For COVID-19? No Information not available 07/15/2022 Are You Deaf Or Do You Have Serious Difficulty Hearing? No Information not available 07/15/2022 What Type Of Diet Are You Following? DIABETIC Information n ot available 07/15/2022 What Is The Highest Grade Or Level Of School You Have Completed Or The Highest Degree You Have Received? 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 No Information not available 07/15/2022 Do You Use Protection During Sex? Usually Information not available 07/15/2022 Do You Use Your Seat Belt Or Car Seat Routinely? No Information not available 07/15/2022 Do You Have Smoke And Carbon Monoxide Detectors In Your Home? Yes Information not available 07/15/2022 How Much Tobacco Do You Smoke? No Information not available 07/15/2022 Do You Feel Stressed (tense, Restless, Nervous, Or Anxious, Or Unable To Sleep At Night)? [id number] Information not available 07/15/2022 Do You Use Any Illicit Or Recreational Drugs? No Information not available 07/15/2022 Do You Use Sunscreen Routinely? No Information not available 07/15/2022 Have You Used IV Drugs? No Information not available 07/15/2022 Sex: Female Functional Status Question Answer Note LastModified by Organizat ion Details LastModified Time Do you have difficulty walking or climbing stairs? No [email or web address] Information not available 10/04/2022 Are you able to walk? [email or web address] Information not available 07/15/2022 Are you able to care for yourself? Yes [email or web address] Information not available 10/04/2022 Do you have difficulty dressing or bathing? No [email or web address] Information not available 10/04/2022 What is your exercise level? Moderate Information not available 07/15/2022 Mental Status None recorded. Family History Nothing Reported. Medical History Condition Response Diabetes Y Other Y Anemia Y Hematologic disorders Y History of abnormal pap Y Headaches Y Deep Vein Thrombosis Y Lung Disease Y Kidney Disease Y Gynecological History Statement/Question Response Abnormal Pap Y Flow Heavy Date of LMP 07/02/2022 N On BCP's at Conception? N STIs/STDs N Was last menstrual period normal N HPV Vaccine N Duration of Flow (days) 7 Current Control Method Tubal Ligat ion Age at First Child 18 Date of control 07/24/2022 Are cycles usually normal N Sexually Active? Y Other Menses Monthly Y Age of first menstrual cycle 13 Date of Last Pap Smear 07/15/2022 Sexual Problems? Y LMP Definite Desired Control Method Other N Obstetrics History GPAL:G 4 P 0 0 0 4 Type Value Living 4 Total 4 Past Encounters Encounter ID Performer Location Encounter Start Date Encounter Closed Date Diagnosis/Indication Diagnosis SNOMED-CT Code Diagnosis ICD10 Code [id number] [facility] [address] [address] 07/15/2022 11:15:04 07/15/2022 13:53:12 Gynecologic examination [id number] Z01.419 Z11.51 Z11.3 Z11.8 Postcoital bleeding 4888 0000 N93.0 [id number] Nichole Dong [place] [address],[place] [address] 07/16/2022 12:16:35 07/16/2022 13:04:25 Postcoital bleeding [id number] N93.0 [id number] Alie Hollingsworth [facility] [address],[place] [address] 07/24/2022 09:39:32 07/26/2022 11:42:23 Menorrhagia [id number] N92.0 [id number] Alie Hollingsworth [facility] [address],[place] [address] 08/27/2022 09:58:42 08/27/2022 11:53:26 Screening procedure [id number] Z13.9 Human ileana llomavirus deoxyribonucleic acid detected, high risk on cervical specimen [id number] R87.810 R87.610 [id number] Chad Wei MD [place] [address],[place] [address] 09/08/2022 17:54:59 09/09/2022 14:23:21 Dysplasia of cervix [id number] N87.9 [id number] Chad Wei MD [place] [address],[place] [address] 10/04/2022 10:44:34 10/04/2022 17:53:25 Screening procedure [id number] Z13.9 Dysplasia of cervix 7339 1008 N87.9 Health Concerns Section Related Observation LastModified by Organization Detai ls LastModified Time None Recorded Concern Status LastModified by Organization Details LastModified Time None Recorded Advance Directives Directive N: Payers Encounter Date Sequence Insurance Name Policy Number Policy Gonzalez Covered Member ID Gonzalez Member ID Guarantor Name 07/16/2022 1 [facility] ON OR AFTER 03/19/21 (MEDICAID REPLACEMENT - HMO) Letty Sheets [id number] Letty Sheets 07/24/2022 1 [facility] ON OR AFTER 03/19/21 (MEDICAID REPLACEMENT - HMO) Letty Sheets [id number] Letty Sheets 08/27/2022 1 [facility] ON OR AFTER 03/19/21 (MEDICAID REPLACEMENT - HMO) Letty Sheets [id number] Letty Sheets 09/08/2022 1 [facility] ON OR AFTER 03/19/21 (MEDICAID REPLACEMENT - HMO) Letty Sheets [id number] Letty Sheets 10/04/2022 1 [facility] ON OR AFTER 03/19/21 (MEDICAID REPLACEMENT - HMO) Letty Sheets [id number] Letty Sheets Notes Date Note Type Note Provider Name and Address Organization Details Recorded Time 07/24/2022 text/html Here today for US review & discuss options for heavy menses. [facility] [address], [place], [address], [facility] 07/24/2022 11:00:21 08/27/2022 text/html Here today for Colposcopy for abn ASCUS pap with +HR HPV. Alie Hollingsworth [facility] [address], [place], [address], [facility] 08/27/2022 10:45:12 09/08/2022 text/html this patient is a 42-year-old female presents for follow-up on abnormal bleeding and abnormal Pap smear. She is being treated for abnormal bleeding. She has a normal pelvic ultrasound essentially. She will continue to use her current treatment and follow-up with Alie. We discussed HPV, cervical dysplasia, cervical cancer. We discussed HPV transmission, natural history, and dormancy. We discussed cervical dysplasia screening, diagnosis, treatment. She was given precautions about follow-up. She was warned of the potential cervical cancer as an outcome in this situation. We discussed LEEP procedure. We discussed the procedure in detail. I showed her video. We discussed the risks, benefits, and alternatives. We spent 25 minutes [id number]. We will proceed with the procedure. Chad Wei MD [address], [place], [address], [facility] 09/08/2022 19:25:35 10/04/2022 text/html 42-year-old female with cervical dysplasia presents for LEEP procedure. Chad Wei MD [address], [place], [address], [facility] 10/04/2022 17:16:18 OBGyn Episode Ob Episode Information Episode Created Date Number of Fetuses Patient Bloodtype Patient rh Status Prepregnancy Weight lbs Domestic Partner Domestic Partner Phone Father Name Jitterbug Operator Status 07/15/20 22 1 CLOSED Fetus Data First Name Last Name Admitted to NICU Weight (g) Sex Living Outcome Pediatric Complications Fetus ID Race Codes Race Delivery Type M [id number] Vaginal Delivery Osvaldo Calculation OSVALDO Calculation Method Initial Osvaldo Date Initial Exam Date Initial Exam Provider Initial Ultrasound Date Last Menstrual Period Date Ultra Sound Weeks Gestation Conception by IVF Embryo Age at Transfer Date of Transfer 0 Eighteen To Twenty Week Osvaldo Update Ultra Sound Date Fundal Height At Umbil Quickening Date Ultra Sound Latest Weeks Gestation Final Osvaldo Confirmed By Final Osvaldo Confirmed Date Final Osvaldo Date Ultra Sound Latest Days Gestation 0 0 Menstrual History Last Menstrual Date Menses Monthly On Bcp Conception Prior Menses Frequency Hcg Plus Date Menarche Onset Age Delivery Information Delivery Date Delivery Type Labor Anesthesia Weeks Gestation Incision Type Labor Labor Length Hrs Delivered By Post Complications Tubal Sterilization Discharge Date Comments 8 Discharge Information Feeding Method Contraceptive Method Maternal HG B and HCT Levels Ob Episode Information Episode Created Date Number of Fetuses Patient Bloodtype Patient rh Status Prepregnancy Weight lbs Domestic Partner Domestic Partner Phone Father Name Jitterbug Operator Status 07/15/20 22 1 CLOSED Fetus Data First Name Last Name Admitted to NICU Weight (g) Sex Living Outcome Pediatric Complications Fetus ID Race Codes Race Delivery Type F [id number] Vaginal Delivery Osvaldo Calculation OSVALDO Calculation Method Initial Osvaldo Date Initial Exam Date Initial Exam Provider Initial Ultrasound Date Last Menstrual Period Date Ultra Sound Weeks Gestation Conception by IVF Embryo Age at Transfer Date of Transfer 0 Eighteen To Twenty Week Osvaldo Update Ultra Sound Date Fundal Height At Umbil Quickening Date Ultra Sound Latest Weeks Gestation Final Osvaldo Confirmed By Final Osvaldo Confirmed Date Final Osvaldo Date Ultra Sound Latest Days Gestation 0 0 Menstrual History Last Menstrual Date Menses Monthly On Bcp Conception Prior Menses Frequency Hcg Plus Date Menarche Onset Age Delivery Information Delivery Date Delivery Type Labor Anesthesia Weeks Gestation Incision Type Labor Labor Length Hrs Delivered By Post Complications Tubal Sterilization Discharge Date Comments 0 Discharge Information Feeding Method Contraceptive Method Maternal HG B and HCT Levels Ob Episode Information Episode Created Date Number of Fetuses Patient Bloodtype Patient rh Status Prepregnancy Weight lbs Domestic Partner Domestic Partner Phone Father Name Jitterbug Operator Status 07/15/20 22 1 CLOSED Fetus Data First Name Last Name Admitted to NICU Weight (g) Sex Living Outcome Pediatric Complications Fetus ID Race Codes Race Delivery Type M [id number] Vaginal Delivery Osvaldo Calculation OSVALDO Calculation Method Initial Osvaldo Date Initial Exam Date Initial Exam Provider Initial Ultrasound Date Last Menstrual Period Date Ultra Sound Weeks Gestation Conception by IVF Embryo Age at Transfer Date of Transfer 0 Eighteen To Twenty Week Osvaldo Update Ultra Sound Date Fundal Height At Umbil Quickening Date Ultra Sound Latest Weeks Gestation Final Osvaldo Confirmed By Final Osvaldo Confirmed Date Final Osvaldo Date Ultra Sound Latest Days Gestation 0 0 Menstrual History Last Menstrual Date Menses Monthly On Bcp Conception Prior Menses Frequency Hcg Plus Date Menarche Onset Age Delivery Information Delivery Date Delivery Type Labor Anesthesia Weeks Gestation Incision Type Labor Labor Length Hrs Delivered By Post Complications Tubal Sterilization Discharge Date Comments 2 Discharge Information Feeding Method Contraceptive Method Maternal HG B and HCT Levels Ob Episode Information Episode Created Date Number of Fetuses Patient Bloodtype Patient rh Status Prepregnancy Weight lbs Domestic Partner Domestic Partner Phone Father Name Jitterbug Operator Status 07/15/20 22 1 CLOSED Fetus Data First Name Last Name Admitted to NICU Weight (g) Sex Living Outcome Pediatric Complications Fetus ID Race Codes Race Delivery Type F [id number] Vaginal Delivery Osvaldo Calculation OSVALDO Calculation Method Initial Osvaldo Date Initial Exam Date Initial Exam Provider Initial Ultrasound Date Last Menstrual Period Date Ultra Sound Weeks Gestation Conception by IVF Embryo Age at Transfer Date of Transfer 0 Eighteen To Twenty Week Osvaldo Update Ultra Sound Date Fundal Height At Umbil Quickening Date Ultra Sound Latest Weeks Gestation Final Osvaldo Confirmed By Final Osvaldo Confirmed Date Final Osvaldo Date Ultra Sound Latest Days Gestation 0 0 Menstrual History Last Menstrual Date Menses Monthly On Bcp Conception Prior Menses Frequency Hcg Plus Date Menarche Onset Age Delivery Information Delivery Date Delivery Type Labor Anesthesia Weeks Gestation Incision Type Labor Labor Length Hrs Delivered By Post Complications Tubal Sterilization Discharge Date Comments 3 Discharge Information Feeding Method Contraceptive Method Maternal HG B and HCT Levels
[2024-08-30 14:12] LABS: Basophils Percent Auto 0.4 % (0.2-1.2); Eosinophils Absolute Auto 0.1 K/mm3 (0-0.3); Hematocrit 38.3 % (37.0-47.0); Hemoglobin 12.4 g/dL (12.0-15.0); Immature Granulocyte Absolute 0.01 K/mm3 (0.00-0.031); Immature Granulocyte Percent A 0.2 % (0-0.5); Lymphocytes Absolute Auto 1.78 K/mm3 (0.9-3.2); Lymphocytes Percent Auto 39.3 % (18.3-44.2); Mean Corpuscular HGB Conc 32.4 g/dl (32-36); Mean Corpuscular Hemoglobin 28.6 pg (26-34); Mean Corpuscular Volume 88.2 fl (80-100); Mean Platelet Volume 10.6 fl (7.4-10.4); Monocytes Absolute Auto 0.7 K/mm3 (0.1-0.6); Monocytes Percent Auto 14.6 % (2.6-8.5); Neutrophils Percent Auto 43.5 % (45.5-73.1); Platelet Count Result 268 k/mm3 (150-375); Red Blood Count 4.34 M/mm3 (4.2-5.4); Red Cell Distribution Width 13.4 % (11.5-14.5); White Blood Count 4.5 K/mm3 (4.5-10.0)
[2024-08-30 14:15] LABS: Albumin Level 4.4 g/dL (3.5-5.1); Anion Gap 5 mmol/L (4-12); Blood Urea Nitrogen 15 mg/dL (7-17); Calcium 9.4 mg/dL (8.4-10.2); Carbon Dioxide 29 mmol/L (22-30); Chloride 104 mmol/L (98-107); Estimated Glomerular Filt Rate > 60; Glucose 91 mg/dL (65-110); Phosphorus 3.1 mg/dL (2.5-4.5); Sodium 138 mmol/L (137-145)
[2024-08-30 14:23] LABS: Add Urine Microscopic? NO; Appearance Urine Clear (Clear); Bilirubin Urine Negative (Negative); Blood Urine Negative (Negative); Color Urine Yellow (Yellow); Glucose Urine UA Negative (Negative); Ketones Urine Negative (Negative); Leukocyte Esterase Ur Negative LEU/UL (Negative); Nitrate Urine Negative (Negative); Protein Urine Negative (Negative); Specific Grav Ur 1.016 (1.001-1.035); pH Urine 5.5 (5.0-9.0)
[2024-08-30 15:47] LABS: Vitamin D 25 Hydroxy 52.9 ng/mL
== END 2024-08-30 13:09 | disposition home or self-care (01) ==
DX: E55.9 Vitamin D deficiency, unspecified (principal); I12.9 Hypertensive chronic kidney disease with stage 1 through stage 4 chronic kidney disease, or unspecified chronic kidney disease; N18.2 Chronic kidney disease, stage 2 (mild)
CPT/HCPCS: 36415; 80069; 81003; 82306; 85025

== ENCOUNTER 2024-11-15 12:10 | Emergency (ER) | payer SELFPAY ==
[2024-11-15 12:15] VITALS: BP 123/78; PULSE 106; RESP 14; TEMP 37.1; O2SAT 100
--- NOTE | 2024-11-15 12:56 | ED.URI ---
HPI - URI/Sore Throat General Chief Complaint: Upper Respiratory Infection Stated Complaint: Fever/Sinus/Cough Time Seen by Provider: 11/15/24 12:56 Source: patient, RN notes reviewed and old records reviewed Mode of arrival: ambulatory Limitations: no limitations History of Present Illness HPI Narrative: 44-year-old female presents to the [facility] with a 6 day history of fevers, sinus congestion, cough and fatigue. Has been taking DayQuil and NyQuil as well as Benadryl. Patient states that she was wheezing yesterday. Lungs are clear today. Patient reports that she is a diabetic but her sugars have been within her normal limits. Onset (ago): day(s) (6) Related Data Home Medications ?Medication ?Instructions ?Recorded ?Confirmed ?Last Taken ?Type atorvastatin 10 mg tablet 10 mg PO DAILY 11/05/20 11/15/24 01/17/21 12:00 History blood sugar diagnostic (OneTouch 11/05/20 01/19/21 Unknown History Verio test strips) insulin glargine 100 unit/mL (3 20 unit subcut HS 11/05/20 11/15/24 01/17/21 17:00 History mL) subcutaneous pen (Lantus Solostar U-100 Insulin) metformin 500 mg tablet 500 mg PO DAILY 11/05/20 11/15/24 01/17/21 12:00 History pen needle, diabetic 31 gauge x 11/05/20 01/19/21 Unknown History 5/16 (BD Ultra-Fine Short Pen Needle) lisinopril 10 mg tablet 10 mg PO DAILY 01/18/21 11/15/24 01/17/21 12:00 History spironolactone 25 mg tablet 25 mg PO DAILY 11/15/24 11/15/24 Unknown History Allergies Allergy/AdvReac Type Severity Reaction Status Date / Time codeine Allergy Severe FACIAL Verified 11/15/24 12:27 SWELLING Review of Systems Review of Systems: All systems reviewed & are unremarkable except as noted in HPI and below Constitutional: Constitutional: Reports as per HPI, Reports body ache(s), Reports fatigue and Reports fever(s) (Subjective) ENT: Reports as per HPI and Reports nasal congestion Cardiovascular: Cardiovascular: Reports no additional cardiovascular complaints, Denies chest pain and Denies dyspnea Respiratory: Respiratory: Reports as per HPI, Denies chest congestion, Reports cough and Denies dyspnea Musculoskeletal: Musculoskeletal: Reports no additional musculoskeletal complaints Integumentary/Breasts: Skin/Breast: Reports system reviewed and no additional complaints, except as docu [facility] Past Medical History Medical History Hyperlipidemia Insulin dependent type 2 diabetes mellitus Hypertension Surgical History Surgical History History of tubal ligation Family History Family History Mother Diabetes mellitus Sibling Diabetes mellitus Father Lung cancer Social History Social History Social History: Surrogate decision maker: Steve Sheets, . Code status: Full code. Smoking status: Never smoker Alcohol intake: former Substance use: never Additional living arrangements comments: Resides in [place] with her and 2 of their children. 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 Comments At the time of my signature, I reviewed and agree with the nursing past medical, surgical, social, and family history. There is no relevant family history pertinent to the patient complaint. Exam Const: General: cooperative, healthy appearing, comfortable, no acute distress, well developed, alert and well nourished Nutritional Appearance: well nourished Orientation/consciousness: patient oriented x3 Limitations: no limitations HENMT: Head: normal to inspection Ears: hearing grossly normal bilaterally, external ears normal, TM's normal bilaterally, EAC's normal, mastoids normal and no periauricular adenopathy Face/Nose/Sinus: Normal external nose present, Normal nares present and Normal nasal mucous membranes and turbinates present Mouth: Yes Normal oral and palatal mucosa present, Yes lip normal, Yes tongue normal and Yes moist mucous membranes Throat: posterior oropharynx normal, uvula midline, postnasal drainage and no uvular edema Eyes: General: appearance normal, both eyes and all related structures Alignment and Position: alignment normal Neck: Neck: normal visual inspection, full ROM, no lymphadenopathy and no meningeal signs Chest: Chest palpation & inspection: normal inspection of the chest Resp: Effort & Inspection: normal respiratory effort and able to speak in complete sentences Auscultation: clear to auscultation bilaterally, no crackles, no rales, no rhonchi and no wheezes Cardio: Rate: regular rate Skin: General skin exam: normal color and no rashes or lesions noted Neuro: General: patient oriented x3, gait normal, moves all extremities and no meningeal signs Cognition (Neuro): normal cognition Speech: normal speech Gait exam (Neuro): Normal gait present Extrem: General: normal to inspection, full ROM, capillary refill normal and normal gait Psych: Appearance: grossly normal and well kempt Mental Status: mental status grossly normal Speech and movement: Normal speech and movement present and Clear speech present Affect: normal affect Attitude: cooperative Course Course Level of Care: Express Care Visit Vital Signs Vital signs: Vital Signs Temperature 98.8 F 11/15/24 12:15 Pulse Rate 106 H 11/15/24 12:15 Respiratory Rate 14 11/15/24 12:15 Blood Pressure 123/78 11/15/24 12:15 Pulse Oximetry 100 11/15/24 12:15 Temperature 98.8 F 11/15/24 12:15 Pulse Rate 106 H 11/15/24 12:15 Respiratory Rate 14 11/15/24 12:15 Blood Pressure 123/78 11/15/24 12:15 Pulse Oximetry 100 11/15/24 12:15 Reviewed MDM - URI/Sore Throat MDM Narrative Medical decision making narrative: Patient sitting comfortably in exam room. Nontoxic, vitals stable. Patient presents with 6 day history of URI symptoms. Flu, COVID were negative in clinic. Due to patient's past medical history, diabetes will treat for possible bacterial /sinusitis bronchitis. Patient appropriate for outpatient treatment with close follow-up Discharge instructions reviewed with patient, as well as provided in writing per nursing staff. The instructions also include specific and strict return/GO TO THE ER as well as f/u information. All questions have been answered, and the patient deny any further questions with discharge and discharge plan. Some parts of this dictation were generated by voice recognition software and may contain typographical and/or grammatical inaccuracies. Differential Diagnosis Differential diagnosis: Likely upper respiratory infection, otitis media, sinusitis, viral infection, bronchitis, influenza and pharyngitis Lab Data Labs: Lab Results 11/15/24 Range/Units 12:25 POC Influenza A Ag Negative (Negative) POC Influenza B Ag Negative (Negative) POC SARS CoV-2 Ag Negative (Negative) Reviewed Critical Care Time Critical Care Time Critical Care Time: No Discharge Plan Discharge Clinical Impression: Bronchitis Sinusitis Qualifiers: Sinusitis location: pansinusitis Chronicity: acute Recurrence: not specified as recurrent Qualified Code(s): J01.40 - Acute pansinusitis, unspecified Patient Disposition: Home, Self-Care Condition: Stable Instructions: Antibiotic Form Additional Instructions: Your rapid COVID test were negative Your rapid flu test was negative Your symptoms are likely due to a viral illness, which is not treated with antibiotics. Typically viral infections last 7-10 days, can linger for couple of weeks. It is very important to treat your symptoms. Drink plenty of water, Gatorade, Pedialyte, ice pops or Jell-O. -Alternate Tylenol and Motrin per package directions for fever or pain. You can alternate every 4 hours -Antihistamine medication such as Zyrtec/Claritin/Kellee during the day can help improve symptoms. -doing daily nasal irrigations can help relieve pressure your sinuses. Things like a Neti pot -Use Flonase twice a day for 5 days then daily to help reduce the inflammation and dry up your sinuses. -You can also use Mucinex. Be sure to drink plenty of water with this medication at least 8 ounces with every dose and it is important to drink 8 to 10 glasses of water per day. Water is a natural decongestant -Eat and drink things that are easy to swallow, like tea or soup, or popsicles. -Oral rinses such as: Salt water gargles and/or may use topical anesthetic (eg. Chloraseptic spray) or lozenges to relieve dryness or throat pain). -Frequent hand washing or hand solar photovoltaic installer is one of the best ways to prevent spread of infection. -Using a vaporizer or humidifier at night will also help thin secretions and help with coughing up phlegm. -Follow up with primary care provider in 7-10 days if condition is not improving - For new or worsening symptoms go directly to the nearest ER Patient Language: Syriac Prescriptions: New albuterol sulfate 90 mcg/actuation HFA aerosol inhaler 2 puff inhalation QID PRN (Reason: shortness of breath or wheezing) Qty: 6.7 0RF (DME) Aerochamber MV Spacer See Rx Instructions .Route Qty: 1 0RF Rx Instructions: As directed doxycycline monohydrate 100 mg tablet 100 mg PO BID Qty: 14 0RF No Action spironolactone 25 mg tablet 25 mg PO DAILY metformin 500 mg tablet 500 mg PO DAILY Rx Instructions: Patient takes with lunch. atorvastatin 10 mg tablet 10 mg PO DAILY Rx Instructions: Patient takes with lunch (DME) OneTouch Verio test strips Strip MISCELLANEOUS (DME) pen needle, diabetic [BD Ultra-Fine Short Pen Needle] 31 gauge x 5/16 needle MISCELLANEOUS insulin glargine [Lantus Solostar U-100 Insulin] 100 unit/mL (3 mL) insulin pen 20 unit SUBCUT HS Rx Instructions: Patient reports she takes at 1700 daily lisinopril 10 mg tablet 10 mg PO DAILY Rx Instructions: Patient takes at lunch Follow-up/Referrals: Félix,Vickie Stanford MD [Primary Care Provider] - 2 Weeks ( [facility] follow-up) Stand Alone Forms: Work/School Release IP Time of Disposition: 13:06
[2024-11-15 13:21] LABS: EDCOVIDSCREEN Negative (Negative); EDINFLUASCREEN Negative (Negative); EDINFLUBSCREEN Negative (Negative)
== END 2024-11-15 13:12 | disposition home or self-care (01) ==
PROVIDERS: Emergency Provider Nurse Practitioner; PCP Internal Medicine
DX: J40 Bronchitis, not specified as acute or chronic (principal); J01.40 Acute pansinusitis, unspecified; Z20.822 Contact with and (suspected) exposure to COVID-19; E11.9 Type 2 diabetes mellitus without complications; Z79.4 Long term (current) use of insulin; Z79.84 Long term (current) use of oral hypoglycemic drugs; I10 Essential (primary) hypertension; E78.5 Hyperlipidemia, unspecified
CPT/HCPCS: 87426; 87804; 99213; G0463

== ENCOUNTER 2025-08-23 12:34 | Outpatient (CLI) | payer OTHER, SELFPAY ==
--- OUTSIDE RECORDS SUMMARY | 2025-08-23 12:48 | XMS_ITS | Clinical Summary ---
Author Organization [facility] Address [address] [place] [address] Care Team Providers Care Wedding Day Coordinator Name Role Phone Vickie Heard MD Primary Care Provider +1- [phone] Allergies Active Allergy Reactions Criticality Noted Date Comments Codeine Cough,Swelling Medium 01/20/2021 Medications lisinopriL (PRINIVIL,ZESTR IL) 10 mg tablet Take 1 tablet (10 mg total) by mouth daily Active atorvastatin (LIPITOR) 10 mg tablet Take 1 tablet (10 mg total) by mouth daily Active spironolactone (ALDACTONE) 25 mg tablet Take 1 tablet (25 mg total) by mouth daily Active OneTouch Verio test strips strip TEST BLOOD SUGARS ONCE DAILY 2 Active OneTouch Delica Plus Lancet 33 gauge misc USE TO TEST EVERY DAY 2 Active TRUEplus Pen Needle 31 gauge x 5/16 needle 2 Active albuterol HFA (PROVENTIL HFA,VENTOLIN HFA,PROAIR HFA) 90 mcg/actuation inhaler as needed Active LANTUS 100 unit/mL (3 mL) pen for injection ADMINISTER 20 UNITS SUBCUTANEOUS AT NIGHT 3 Active metFORMIN (GLUCOPHAGE) 500 mg tablet Take 1 tablet (500 mg total) by mouth daily 3 Active azelastine (OPTIVAR) 0.05 % ophthalmic solution as needed Active butalbital-acet aminophen-caffe ine (FIORICET) 50-300-40 mg per capsule Take 1 capsule by mouth 2 (two) times a day as needed 4 Active ergocalciferol (VITAMIN D) 50,000 unit capsule TAKE 1 CAPSULE BY MOUTH ONCE EVERY 15 DAYS 4 Active neomycin-polymy damien B-dexAMETHasone (MAXITROL) 3.5 mg/g-10,000 unit/g-0.1 % ointment APPLY TO LIDS EVERY NIGHT AT BEDTIME FOR 7 DAYS. 4 Active TRUEplus Pen Needle 31 gauge x 1/4 needle 4 Active Active Problems Problem Noted Date Diagnosed Date Stage 2 chronic kidney disease 07/04/2022 FSGS (focal segmental glomer ulosclerosis), tip variant with nephrosis 09/02/2021 Thrombocytopenia 08/05/2021 Assessment & Plan (08/05/2021 12:31 PM METALIZER): Plt count dropped from 82 from 161. Repeat this AM with ct of 94. No evidence of bleeding. No further evaluation at this time. -Recheck CBC next week -Call with any signs of bleeding Type 2 diabetes mellitus 08/04/2021 Assessment & Plan (08/05/2021 12:26 PM METALIZER): A1c 5.4% -Resume lantus 20U qAM and metformin at home Nephrotic syndrome 06/18/2021 Assessment & Plan (08/05/2021 12:26 PM METALIZER): s/p kidney biopsy 08/04. Remains hemodynamically stable. Hgb stable -Pt declines complaints including back pain -Cont lasix, lisinopril, aldactone -OP f/u with Nephrology Cerebral venous sinus thrombosis 01/20/2021 Assessment & Plan (08/05/2021 12:24 PM METALIZER): Follows with Neurology on eliquis 5mg BID -Restart eliquis 48h following procedure Assessment & Plan (02/12/2021 9:42 AM CDT): Surgical History Surgery Date Site/Laterality Comments RENAL BIOPSY US GUIDED BIOPSY RENAL 08/04/2021 N/A US GUIDED BIOPSY LYMPH NODE SUPERFICIAL LEFT 11/22/2022 N/A Medical History Medical History Date Comments Diabetes mellitus Motion sickness Family History Medical History Relation Name Comments Brain cancer Father No Known Problems Mother Relation Name Status Comments Father Mother Social History Tobacco Use Types Packs/Day Years Used Date Smoking Tobacco: Never Smokeless Tobacco: Never Tobacco Cessation:Counseling Given: Not Answered AUDIT-C Answer Date Recorded Q1: How often do you have a drink containing alc ohol? Never 08/03/2021 Average Number of Drinks Not on file 021 Frequency of Binge Drinking Not on file 07/20 PHQ-2 Answer Date Recorded PHQ-2 Total Score (If total score is 3 or more points, staff should administer the PHQ-9) 0 01/20/2021 Hunger Vital Sign Answer Date Recorded Within the past 12 months, y ou worried that your food would run out before you got the money to buy more. Never true 02/13/20 21 Within the past 12 months, t he food you bought just didn't last and you didn't have money to get more. Never true 02/12/2021 Comments No Sex and Gender Information Value Date Recorded Sex Assigned at Not on file Legal Sex Female 6:19 PM METALIZER Gender Identity Not on file Sexual Orientation Not on file Last Filed Vital Signs Vital Sign Reading Time Taken Comments Blood Pressure 144/85 09/05/2024 2:03 PM METALIZER Pulse 66 09/05/2024 2:03 PM METALIZER Temperature 37.2 C (98.9 F) 08/31/2023 2:07 PM METALIZER Respiratory Rate 16 09/24/2022 9:38 AM METALIZER Oxygen Saturation 100% 09/24/2022 9:38 AM METALIZER Inhaled Oxygen Concentration - - Weight 109.9 kg (242 lb 4.8 oz) 09/05/2024 2:03 PM METALIZER Height 177.8 cm (5' 10) 09/05/2024 2:03 PM METALIZER Body Mass Index 34.77 09/05/2024 2:03 PM METALIZER Plan of Treatment Health Maintenance Due Date Last Done Comments Albumin Creatinine Ratio, Urine 1980 Breast Cancer Screening-Mammogram 1980 Cervical Cancer Screening 1980 Colon Cancer Screening-Colonoscopy 1980 Dilated Eye Exam 1980 Foot Exam 1980 Lipid Panel 1980 DTaP/Tdap/Td Vaccine (1 - Tdap) 1991 Varicella Vaccines (1 of 2 - 13+ 2-dose series) 1993 Hepatitis B Screening 1998 Regular Well Visit/Exam 18-64 1998 Pneumococcal vaccine <65 (1 of 2 - PCV) 1999 HPV Vaccines (1 - 3-dose SCD M series) 2007 Depression Screening 01/18/2022 01/18/2021 eGFR 03/19/2023 03/19/2022, 12/18, 09/25/2021, Additional history exists Hemoglobin A1C 07/01/2023 12/30/2022, 06/17/2021 Covid-19 Vaccine (3 - 2024-2 6 season) 2025 03/26/2021, 03/05/2021 Influenza Vaccine (#1) 2025 Hepatitis C Screening Completed 06/17/2021 Procedures Procedure Name Priority Date/Time Associated Diagnosis Comments EGFR Routine 03/19/2022 11:34 AM CDT Cerebral venous sinus thrombosis Anemia, unspecified type HEPATITIS C ANTIBODY Routine 06/17/2021 4:05 PM CDT Stage 3 chronic kidney disease, unspecified whether stage 3a or 3b CKD (HCC) HEMOGLOBIN A1C Routine 06/17/2021 4:05 PM CDT Stage 3 chronic kidney disease, unspecified whether stage 3a or 3b CKD (HCC) from Last 3 Months or Most Recently Relevant to Health Maintenance Results * (ABNORMAL) eGFR (03/19/2022 11:34 AM CDT) eGFR 81(L) 90 - 130 mL/min/1. 73 m2 [facility] Comment: Interpretive Data Reference Interval Normal >/= 90 mL/min/1.73m2 Mildly decreased* 60 - 89 mL/min/1.73m2 Mildly to moderately decreased 45 - 59 mL/min/1.73m2 Moderately to severely decreased 30 - 44 mL/min/1.73m2 Severely decreased 15 - 29 mL/min/1.73m2 Kidney Failure < 15 mL/min/1.73m2 *Relative to young adult level Estimated glomerular filtration rate is determined by the 2020 CKD-EPI equation recommended by the National Kidney Foundation (A Unifying Approach to GFR Estimation: Recommendations of the NKF-ASK Task Force on Reassessing the Inclusion of Race in Diagnosing Kidney Disease, JASN 2020). The CKD-EPI equation should not be used for patients with unstable renal function and has not been validated in children and those over 70. Current interpretive data was last reviewed 2021. Testing performed by: [facility], [address] [place] [id number] Blood 03/19/2022 11:3 4 AM CDT 03/19/2022 11:35 AM CDT Rebecca Pate MD LAB BLOOD ORDERABLES Final Result Performing Organization Address [facility] Co de Phone Number [facility] Department [place] [address] * Hepatitis C antibody (06/17/2021 4:05 PM CDT) Pathologist [facility] Hep C Ab Nonreactive Nonreactive [facility] Comment:Antibodies to HCV no t detected. Does NOT exclude the possibility of recent exposure to HCV. Blood 06/17/2021 4:05 PM CDT 06/17/2021 4:27 PM CDT us Néstor Arenas MD LAB MICROBIOLOGY - GENER AL ORDERABLES Edited Result - Final Performing Organization Address City/[facility] Co de Phone Number [facility] [place] [address] * Hemoglobin A1c (06/17/2021 4:05 PM CDT) Pathologist [facility] Hgb A1C 5.4 4.0 - 5.6 % [facility] Estimated Average Glucose 108 mg/dL [facility] Comment: The ADA recommends reporting an estimated Average Glucose (eAG) with all Hemoglobin A1c results using the equation derived from a study of 507 normal and diabetic adults. Minority populations were underrepresented and children were not included. (Diabetes Care 2020; 43(S1): S66-S76). The eAG is not equivalent to a fasting glucose. Blood 06/17/2021 4:05 PM CDT 06/17/2021 4:27 PM CDT us Néstor Arenas MD LAB BLOOD ORDERABLES Fin al Result [facility] [place] [address] from Last 3 Months or Most Recently Relevant to Health Maintenance Insurance Advance Directives For more information, please contact: [phone] * Full Code (Latest Code Status on File) Date Activated Date Inactivated Comments 08/04/2021 3:12 PM 08/05/2021 5:32 PM * Full Code Date Activated Date Inactivated Comments 01/20/2021 3:34 AM 01/20/2021 5:42 PM Care Teams Wedding Day Coordinator Relationship Specialty Start Date End Date Vickie Heard MD [address] [facility] [place] [address] PCP - General Internal Medicine 01/20/21
--- OUTSIDE RECORDS SUMMARY | 2025-08-23 12:48 | XMS_ITS | Encounter Summary ---
Author Organization [facility] Address [address] [place] [address] Phone Care Team Providers Care Epitaxial Reactor Operator Name Role Phone Vickie Heard MD Primary Care Provider +1- [phone] Encounter Details Date Type Department Care Team (Late st Contact Info) Description 05/27/2021 Orders Only [facility] Scanning, Provider Social History Tobacco Use Types Packs/Day Years Used Date Smoking Tobacco: Never Smokeless Tobacco: Never AUDIT-C Answer Date Recorded Q1: How often do you have a drink containing alc ohol? 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 Gender Identity Not on file Sexual Orientation Not on file documented as of this encounter Plan of Treatment Not on file documented as of this encounter Procedures Procedure Name Priority Date/Time Associated Diagnosis Comments SCAN - RADIOLOGY/IMAGING 05/27/2021 documented in this encounter Results * SCAN - RADIOLOGY/IMAGING (05/27/2021) Anatomical Region Laterality Modality Other us Provider Scanning Final Result documented in this encounter Visit Diagnoses Not on filedocumented in this encounter Care Teams Epitaxial Reactor Operator Relationship Specialty Start Date End Date Vickie Heard MD [address] [place] [address] PCP - General Internal Medicine 01/20/21 documented as of this encounter
--- OUTSIDE RECORDS SUMMARY | 2025-08-23 12:48 | XMS_ITS | Encounter Summary ---
Author Organization [facility] Address [address] [place] [address] Care Team Providers Care Utility Maintenance Worker Name Role Phone Vickie Heard MD Primary Care Provider +1- [phone] Encounter Details Date Type Department Care Team (Late st Contact Info) Description 07/22/2021 Telephone [facility] Radiology [address] [place] [address] Saray Murcia MD [address] [place] [address] Social History Tobacco Use Types Packs/Day Years [...] on file Legal Sex Female 6:19 PM FIELD COORDINATOR Gender Identity Not on file Sexual Orientation Not on file documented as of this encounter Plan of Treatment Not on file documented as of this encounter Visit Diagnoses Not on filedocumented in this encounter Care Teams Utility Maintenance Worker Relationship Specialty Start Date End Date Vickie Heard MD [address] [facility] [place] [address] PCP - General Internal Medicine 01/20/21 documented as of this encounter
--- OUTSIDE RECORDS SUMMARY | 2025-08-23 12:48 | XMS_ITS | Encounter Summary ---
Author Organization [facility] Address [address] [place] [address] Phone Care Team Providers Care Instructor Watch Assembly Name Role Phone Vickie Heard MD Primary Care Provider +1- [phone] Encounter Details Date Type Department Care Team (Late st Contact Info) Description 05/26/2021 Orders Only [facility] Scanning, Provider Social [...] on file Legal Sex Female 6:19 PM MARKETING EXECUTIVE Gender Identity Not on file Sexual Orientation Not on file documented as of this encounter Plan of Treatment Not on file documented as of this encounter Procedures Procedure Name Priority Date/Time Associated Diagnosis Comments SCAN - LABS 05/26/2021 documented in this encounter Results * SCAN - LABS (05/26/2021) us Provider Scanning Final Result documented in this encounter Visit Diagnoses Not on filedocumented in this encounter Care Teams Instructor Watch Assembly Relationship Specialty Start Date End Date Vickie Heard MD [address] [place] [address] PCP - General Internal Medicine 01/20/21 documented as of this encounter
--- OUTSIDE RECORDS SUMMARY | 2025-08-23 12:48 | XMS_ITS | Encounter Summary ---
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 Gender Identity Not on file Sexual Orientation Not on file documented as of this encounter Plan of Treatment Not on file documented as of this encounter Procedures Procedure Name Priority Date/Time Associated Diagnosis Comments SCAN - RADIOLOGY/IMAGING 05/17/2021 documented in this encounter Results * SCAN - RADIOLOGY/IMAGING (05/17/2021) Anatomical Region Laterality Modality Other us Provider Scanning Final Result documented in this encounter Visit Diagnoses Not on filedocumented in this encounter Care Teams Support Technician Relationship Specialty Start Date End Date Vickie Heard MD [address] [place] [address] PCP - General Internal Medicine 01/20/21 documented as of this encounter
--- OUTSIDE RECORDS SUMMARY | 2025-08-23 12:48 | XMS_ITS | Encounter Summary ---
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
--- OUTSIDE RECORDS SUMMARY | 2025-08-23 12:48 | XMS_ITS | Encounter Summary ---
Author Organization 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 Gender Identity Not on file Sexual Orientation Not on file documented as of this encounter Plan of Treatment Not on file documented as of this encounter Procedures Procedure Name Priority Date/Time Associated Diagnosis Comments SCAN - RADIOLOGY/IMAGING 05/18/2021 documented in this encounter Results * SCAN - RADIOLOGY/IMAGING (05/18/2021) Anatomical Region Laterality Modality Other us Provider Scanning Final Result documented in this encounter Visit Diagnoses Not on filedocumented in this encounter Care Teams Veneer Jointer Helper Relationship Specialty Start Date End Date Vickie Heard MD [address] [place] [address] PCP - General Internal Medicine 01/20/21 documented as of this encounter
--- OUTSIDE RECORDS SUMMARY | 2025-08-23 12:48 | XMS_ITS | Encounter Summary ---
Author Organization 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 Gender Identity Not on file Sexual Orientation Not on file documented as of this encounter Plan of Treatment Not on file documented as of this encounter Procedures Procedure Name Priority Date/Time Associated Diagnosis Comments SCAN - RADIOLOGY/IMAGING 05/25/2021 documented in this encounter Results * SCAN - RADIOLOGY/IMAGING (05/25/2021) Anatomical Region Laterality Modality Other us Provider Scanning Final Result documented in this encounter Visit Diagnoses Not on filedocumented in this encounter Care Teams Geometry Teacher Relationship Specialty Start Date End Date Vickie Heard MD [address] [facility] [address] PCP - General Internal Medicine 01/20/21 documented as of this encounter
[2025-08-23 13:29] LABS: Hematocrit 36.2 % (37.0-47.0); Hemoglobin 11.6 g/dL (12.0-15.0); Immature Granulocyte Percent A 0.5 % (0-0.5); Lymphocytes Absolute Auto 1.61 K/mm3 (0.9-3.2); Mean Corpuscular HGB Conc 32.0 g/dl (32-36); Mean Corpuscular Hemoglobin 28.0 pg (26-34); Mean Corpuscular Volume 87.2 fl (80-100); Nucleated Red Blood Cells Absolute Auto 0.000 K/mm3 (0.0-0.012); Nucleated Red Blood Cells Perc 0.0 % (0.0-0.2); Platelet Count Result 327 k/mm3 (150-375); Red Blood Count 4.15 M/mm3 (4.2-5.4); White Blood Count 3.8 K/mm3 (4.5-10.0)
[2025-08-23 14:01] LABS: Albumin Level 4.0 g/dL (3.5-5.1); Anion Gap 4 mmol/L (4-12); Blood Urea Nitrogen 14 mg/dL (7-17); Calcium 9.1 mg/dL (8.4-10.2); Carbon Dioxide 28 mmol/L (22-30); Chloride 105 mmol/L (98-107); Estimated Glomerular Filt Rate > 60; Glucose 92 mg/dL (65-110); Potassium 3.9 mmol/L (3.4-5.0); Sodium 137 mmol/L (137-145)
[2025-08-23 14:06] LABS: Add Urine Microscopic? YES; Appearance Urine Clear (Clear); Glucose Urine UA Negative (Negative); Leukocyte Esterase Ur Negative LEU/UL (Negative); Nitrate Urine Negative (Negative); Non Pathogenic Casts 0-2; Specific Grav Ur 1.021 (1.001-1.035)
[2025-08-23 22:18] LABS: Total Protein Urine Random < 5 mg/dL
[2025-08-23 22:19] LABS: Ur Ttl Prot Creatinine Ratio < 0.03 mg/mg (0-0.20)
== END 2025-08-23 12:35 | disposition home or self-care (01) ==
PROVIDERS: PCP Internal Medicine
DX: N03.2 Chronic nephritic syndrome with diffuse membranous glomerulonephritis (principal)
CPT/HCPCS: 36415; 80069; 81001; 82306; 82570; 84156; 85025